=== PATIENT | female | born 1960 | race Caucasian/White ===

== ENCOUNTER 2017-07-31 10:24 | Emergency (ER) | payer MEDICARE ==
[2013-02-07 22:46] VITALS: BMI 36.3
[~2017-07-31 10:24] MED LIST: ADVAIR 250/501 DISK INH; CLONAZEPAM2 MG/TAB PO; DEXTROSE 50%/WA50 ML IV; DILAUDID INJ2 MG/ML IV; GLUCAGON1 MG/KIT IM; GLUCAGON1 MG/KIT SQ; GLUCOPHAGE500 MG PO; HUMALOG 30100 UNITS/ SC; HUMULIN R100 U/ML; IPRAT-ALBUT 0.5-3 ML NEB; LANTUS INSULIN10 ML; LISINOPRIL5 MG PO; MACROBID100 MG PO; METOPROLOL TART50 MG PO; ONDANSETRON4 MG/2 M3 IV; OXYCONTIN10 MG PO; OXYCONTIN15 MG PO; PHENERGAN25 M1 PO; PHENERGAN25 MG/ML IM; PROTONIX 40 MG40 MG IV; PROTONIX40 MG PO; SYNTHROID100 MCG PO; TYLENOL 8 HOUR650 MG PO; TYLENOL650 MG RC; VICOPROFEN 7.5/1 TAB PO; XANAX2 MG PO; ZETIA10 MG PO
[2017-07-31 10:53] LABS: BASOPHILS 0.6 % (0-2); EOSINOPHILS 1.4 % (0-7); HEMATOCRIT 41.5 % (36.0-48.0); HEMOGLOBIN 14.4 g/dL (12-16); IMMATURE GRANULOCYTES 0.6 % (0-5); LYMPHOCYTES 34.7 % (15-50); MCH 30.8 pg (26.0-34.0); MCHC 34.7 g/dL (31.0-37.0); MCV 88.9 fL (80.0-100.0); MEAN PLATELET VOLUME 9.6 fL (7.4-10.4); NEUTROPHILS 57.7 % (40-80); PLATELET COUNT 277 10x3/uL (130-400); RBC 4.67 10x6/uL (4.00-5.40); RDW 13.2 % (11.5-14.5)
[2017-07-31 11:09] LABS: ALBUMIN 3.6 g/dL (3.4-5.0); ALKALINE PHOSPHATASE 78 U/L (46-116); ALT (SGPT) 22 U/L (10-68); CALC OSMOLALITY 279 mosm/kg (275-300); CALCIUM 9.2 mg/dL (8.5-10.1); CARBON DIOXIDE 25.9 mmol/L (21.0-32.0); CHLORIDE - SERUM 106 mmol/L (98-107); CREATININE - SERUM 0.8 mg/dL (0.6-1.3); GLUCOSE 131 mg/dL (74-106); POTASSIUM - SERUM 4.4 mmol/L (3.5-5.1); PROTEIN - SERUM 7.4 g/dL (6.4-8.2); SODIUM 139 mmol/L (136-145); UREA NITROGEN 13 mg/dL (7-18); eGFR NON AFRICAN AMERICAN 78 mL/min (90-120)
[2017-07-31 11:30] LABS: CHOL - HDL RATIO 2.8 ratio (2.3-4.1); CHOLESTEROL, TOTAL 161 mg/dL (0-200); CKMB 0.7 U/L (0.0-3.6); CREATINE KINASE 38 UL (21-215); HDL CHOLESTEROL 57 mg/dL (32-96); LDL CHOLESTEROL 75 mg/dL (0-100); LDL-HDL RATIO 1.3 ratio (1.5-3.5); TRIGLYCERIDE 146 mg/dL (30-200); TROPONIN-I < 0.017 ng/mL (0.000-0.060)
[2017-07-31 11:58] LABS: C-REACTIVE PROTEIN 1.4 mg/dL (0.0-0.9); MAGNESIUM - SERUM 2.1 mg/dL (1.8-2.4); THYROID STIMULATING HORMONE 1.15 uIU/mL (0.36-3.74)
[2017-08-25] MEDS ORDERED: NOVOLOG100 U/M1 SC (08:20)
[2017-08-25] MEDS ORDERED: PRALUENT P75 MG/1 ML SC (08:22)
[2017-08-25] MEDS ORDERED: HYDROCODONE-IB1 EAC3 PO (08:22)
[2017-08-25] MEDS ORDERED: SOMA350 MG (08:23)
[2017-08-25] MEDS ORDERED: BENADRYL25 MG PO (08:24)
[2017-08-25] MEDS ORDERED: NITROSTAT0.4 MG SL (08:26)
== END 2017-07-31 14:27 | disposition home or self-care (01) ==
LOC: D.ER 10:24
PROVIDERS: Emergency Medicine
DX: R07.9 Chest pain, unspecified (principal); E11.9 Type 2 diabetes mellitus without complications; Z79.4 Long term (current) use of insulin; E07.9 Disorder of thyroid, unspecified; F17.200 Nicotine dependence, unspecified, uncomplicated

== ENCOUNTER 2017-08-18 08:33 | Outpatient (CLI) | payer MEDICARE ==
[~2017-08-18] VITALS: Ht 165.1 cm; Wt 100.0 kg
--- NOTE | ~2017-08-18 | OP ---
PATIENT NAME: MARQUES GARCIA MEDICAL RECORD: [id number] :62 LOCATION:D.M2 D.2125 ADMISSION DATE: SURGEON: NICK LAZARO MD DATE OF OPERATION: 08/18/2017 PROCEDURES: 1. PTCA stent RCA. 2. Left heart catheterization. 3. Selective coronary angiography. 4. Left ventriculogram. INDICATION: Angina and coronary artery disease. PROCEDURE IN DETAIL: After informed consent was obtained and after a detailed description of the risks, benefits as well as alternative therapies, the patient elected to proceed with angiogram and angioplasty. The right radial area was prepped and draped in normal sterile fashion. Right radial artery was cannulated via modified Seldinger technique with placement of 6-Kinyarwanda sheath. All catheters exchanged through this sheath. FINDINGS: The left ventriculogram was performed in standard 30-degree MARTINEZ view reveals good wall motion throughout all segments. Overall ejection fraction 55%. SELECTIVE CORONARY ANGIOGRAPHY: 1. Left main is with no significant angiographic disease. 2. Left anterior descending has 80% to 85% stenosis times 2. 3. Left circumflex has long area of 80+ percent stenosis. 4. The right coronary artery has a long area of 80% stenosis followed by 95% stenosis. PTCA STENT OF THE RIGHT CORONARY ARTERY: Stents used were 3.5 x 22 and 3.5 x 26, both Nathan stents. Result was 0% residual stenosis. OVERALL IMPRESSION: Successful PTCA stent of the right coronary artery going from 95% initial stenosis to 0% residual. PLAN: PTCA stent of the LAD and circumflex in the near future. TRANSINT:[id number] Voice Confirmation ID: [id number] DOCUMENT ID: [id number] NICK LAZARO MD at 1218 CC: [id number] DICTATION DATE: 08/18/17 1103 SWEET GOODS MACHINE OPERATOR: 08/18/17 1244 [address] [place] [address]
--- NOTE | ~2017-08-18 | DS ---
PATIENT:MARQUES MARTINEZ :62 MEDICAL RECORD: [id number] DISCHARGE SUMMARY ADMISSION DATE: 08/18/17 DISCHARGE DATE: 08/19/17 DISCHARGE DIAGNOSES: 1. Unstable angina. 2. Coronary artery disease. 3. PTCA stent right coronary artery and left anterior descending this admission. HOSPITAL COURSE: Mrs. Martinez presents with anginal symptomatology, found to have 3-vessel coronary artery disease, underwent successful PTCA stent of the RCA and LAD, had a postop course and was discharged home with the addition of aspirin and Plavix to her medical regimen. Follow up with [facility] in 1 month. TRANSINT:[id number] Voice Confirmation ID: [id number] DOCUMENT ID: [id number] NICK LAZARO MD at 0751 CC: [id number] DICTATION DATE: 08/19/17 1253 MANAGER CITY: 08/19/17 1429 DEP CLI 08/19/17 [address] [place] [address]
--- NOTE | ~2017-08-18 | HEMODYNAMI ---
PATIENT:MARQUES GARCIA MEDICAL RECORD: [id number] : 62 LOCATION[facility] D.2125 [id number] ADMISSION DATE: 08/18/17 Generatedon:08/19/201712:53 Patient name: MARQUES GARCIA Patient #: [id number] SSN: : Date of study: 08/19/2017 Page: Of Hemodynamic Procedure Report Patient Data Patient Demographics Procedure consent was obtained First Name: MARQUES Gender: Female Last Name: RADHA : 1960 [facility] Initial: ROSE Age: 57 year(s) Patient #: [id number] Race: Unknown Additional ID: [id number] Contact details [address]: [address] [place] [address] State: [place] City: [place] Zip code: [address] Past Medical History Allergies Allergen Reaction Date Comments Reported Other allergy 08/18/2017 CYMBALTA, DOLOBID, LIPITOR, NEGGRAM, SULFA, TYLENOL, VISTARIL Admission Admission Data Admission Date: 08/18/2017 Admission Time: 8:33 Room #: D.2125 Procedure Procedure Types Cath Procedure PCI Procedure Coronary Stent Coronary Stent Initial Procedure Description Procedure Date Procedure Date: 08/19/2017 Procedure Start Time: 12:42 Procedure End Time: 12:52 Procedure Staff Name Function Rubens Castillo MD Performing Physician Jose David Rascon RT Locum Tenens Kori Wong RT Monitor Kristin Jacinto RT Scrub Nura Montes RN Nurse Procedure Data Cath Procedure Fluoroscopy Diagnostic fluoroscopy Total fluoroscopy Time: 2.2 time: 2.2 min min Diagnostic fluoroscopy Total fluoroscopy dose: 242 dose: 242 mGy mGy Contrast Material Contrast Material Type Amount (ml) Isovue 370 47 Entry Location Entry Primary Successful Side Size Upsize Upsize Entry Closure Succes sful Closure Location (Fr) 1 (Fr) 2 (Fr) Remarks Device Remarks Femoral Right 6 Fr Exoseal artery Short Estimated blood loss: 5 ml Procedure Complications No complications Procedure Medications Medication Administration Route Dosage 0.9% NaCl I.V. 100 ml/hr Oxygen etCO2 Nasal cannula 2 l/min Heparin Flush Bag added to field 2 bags (1000units/500ml NS) Lidocaine 2% added to field 20 Versed I.V. 2 mg Fentanyl I.V. 100 mcg Versed I.V. 2 mg Fentanyl I.V. 100 mcg Heparin Bolus I.V. 4000 units Versed I.V. 2 mg Hemodynamics Rest Heart Rate: 69 (bpm) Snapshots Pre Cath Intra NCS Post Cath Vital Signs Time Heart Resp SPO2 etCO2 NIBP (mmHg) Rhythm Pain Sedation Rate (ipm) (%) (mmHg) Status Level (bpm) 12:14:33 72 15 95 0 132/82(104) NSR 0 (11) 10(A) , No pain 12:18:49 64 12 97 15.7 124/74(104) NSR 0 (11) 10(A) , No pain 12:23:01 67 19 97 28.5 122/80(95) NSR 0 (11) 10(A) , No pain 12:27:13 70 30 94 12.7 121/77(107) NSR 0 (11) 10(A) , No pain 12:31:19 64 22 95 2.2 123/73(115) NSR 0 (11) 10(A) , No pain 12:35:31 67 19 97 26.2 129/78(114) NSR 0 (11) 10(A) , No pain 12:39:45 67 16 96 3.7 127/77(110) NSR 0 (11) 10(A) , No pain 12:44:03 64 53 94 38.3 111/64(91) NSR 0 (11) 10(A) , No pain 12:48:13 72 31 96 27 106/59(84) NSR 0 (11) 10(A) , No pain 12:52:25 66 10 93 33.8 113/58(87) NSR 0 (11) 10(A) , No pain Medications Time Medication Route Dose Verified Delivered Reason Notes Effectiveness by by 12:18:44 0.9% NaCl I.V. 100 Nura Nura Per physician ml/hr Jyoti Montes RN RN 12:18:54 Oxygen etCO2 2 Nura Nura Per physician Nasal l/min Jyoti cardenas RN RN 12:19:05 Heparin Flush added 2 Nura Nura used for Bag to bags Loralessandro Montes procedure (1000units/500ml field RN RN NS) 12:19:16 Lidocaine 2% added 20ml Nura Nura for local to vial Loralessandro Montes anesthetic field RN RN 12:37:52 Versed I.V. 2 mg Nura Nura for sedation Loralessandro Montes RN RN 12:38:00 Fentanyl I.V. 100 Nura Nura for sedation mcg Jyoti Montes RN RN 12:40:38 Versed I.V. 2 mg Nura Nura for sedation Lorigan Loralessandro RN RN 12:40:47 Fentanyl I.V. 100 Nura Nura for sedation mcg Jyoti Montes RN RN 12:44:15 Heparin Bolus I.V. 4000 Nura Nura for units Lorigan Jyoti anticoagulation RN RN 12:45:51 Versed I.V. 2 mg Nura Nura for sedation Jyoti Montes RN de icer finisher Log Time Note 12:00:02 Jose David Rascon RT(R) (CV) sent for patient. Start room use. 12:09:07 Time tracking: Regular hours (M-F 7:00 - 5:00) 12:09:11 Plan of Care:Hemodynamics will remain stable., Cardiac rhythm will remain stable., Comfort level will be maintained., Respiratory function will remain adequate., Patient/ family verbilizes understanding of procedure., Procedure tolerated without complication., Recovers from procedure without complications.. 12:09:12 Signed procedure consent form obtained from patient. 12:09:23 Patient received from Med II to CCL 2 Alert and oriented. Tansferred to table in Supine position. 12:09:50 H&P Date Dictated: 08/18/2017 Within 30 days and on chart., H&P Addendum completed by physician on day of procedure. (MUST COMPLETE FOR ALL OUTPATIENTS). 12:13:26 Warm blankets applied, and nieves hugger turned on for patient comfort. 12:13:27 Correct patient and procedure confirmed by team. 12:13:27 ECG and BP/O2 sat monitors applied to patient. 12:13:29 Vital chart was started 12:13:29 Full Disclosure recording started 12:13:33 Rhythm: sinus rhythm 12::34 Pre-procedure instructions explained to patient. 12::34 Pre-op teaching completed and patient verbalized understanding. 12:13:37 Family in patients room. 12:13:39 Patient NPO since Midnight. 12:13:46 Is the patient allergic to Iodine/contrast media? Yes. 12:13:47 Was the patient premedicated? No 12:13:49 Is patient on blood thinner?Yes 12:13:50 ACC The patient was administered the following blood thiners within the last 24 hours: ACCAspirin, ACCPlavix 12:13:52 Patient diabetic? Yes. 12:15:17 If diabetic: On Metformin? Yes 12:15:20 If on Metformin: Last Dose? 08/16/2017 12:15:32 Previous problem with sedation/anesthesia? No ? 12:15:33 Snore? Yes 12:15:34 Sleep apnea? No 12:15:36 Deviated septum? No 12:15:37 Opens mouth fully? Yes 12:15:37 Sticks out tongue? Yes 12:15:39 Airway obstruction? No ? 12:15:43 Dentures? Yes IN 12:15:46 Pre procedure: right dorsailis pedis pulse 2+ Normal; easily identifiable; not easily obliterated 12:15:49 Patient pain scale 0/10 ?. 12:15:54 IV patent on arrival in left forearm with 0.9% NaCl at [facility]. 12:15:57 Lab results completed and on chart. 12:16:02 Right groin area was prepped with chlora-prep and draped in sterile fashion 12:16:03 Alarms reviewed by R. N. 12:16:03 Sharps counted by scrub and verified by R.N. 12:18:38 Use device set CATH PACK 12:18:39 ACIST Syringe (13461) opened to sterile field. 12:18:39 ACIST Hand Control (27884) opened to sterile field. 12:18:40 ACIST Manifold (15064) opened to sterile field. 12:18:40 Medline Cath Pack ([id number]) opened to sterile field. 12:18:41 Bag Decanter (2002) opened to sterile field. 12:18:41 DIAGNOSTIC WIRE .035 260cm J wire (141151) opened to sterile field. 12:18:44 0.9% NaCl 100 ml/hr I.V. was administered by Nura Montes RN; Per physician; 12:18:53 Use device set TAU PCI 12:18:54 Oxygen 2 l/min etCO2 Nasal cannula was administered by Nura Montes RN; Per physician; 12:18:56 PERCUTANEOUS ENTRY 19GA needle opened to sterile field. 12:18:57 Tegaderm 4 x 4 (1626W) opened to sterile field. 12:18:57 INFLATOR Merit BasixCompak (MX0431) opened to sterile field. 12:19:01 CHOICE PT Extra Support 182cm wire ([id number]) opened to sterile field. 12:19:04 SHEATH Prelude 6Fr 0.035 (JGV-8C-25-035) opened to sterile field. 12:19:05 Heparin Flush Bag (1000units/500ml NS) 2 bags added to field was administered by Nura Montes RN; used for procedure; 12:19:16 Lidocaine 2% 20ml vial added to field was administered by Nura Montes RN; for local anesthetic; 12:21:48 Baseline sample Acquired. 12:26:40 Zero performed for pressure channel P1 12:26:44 Zero performed for pressure channel P1 12:37:30 Final Timeout: patient, procedure, and site verified with staff and physician. All members of the team are in agreement. 12:37:31 Right groin site verified by team. 12:37:33 Physical assessment completed. ASA score P 2 - A patient with mild systemic disease as per Rubens Castillo MD. 12:37:36 Sedation plan: IV Moderate Sedation Medication:Versed, Fentanyl 12:37:52 Versed 2 mg I.V. was administered by Nura Montes RN; for sedation; 12:38:00 Fentanyl 100 mcg I.V. was administered by Nura Montes RN; for sedation; 12:40:38 Versed 2 mg I.V. was administered by Nura Montes RN; for sedation; 12:40:47 Fentanyl 100 mcg I.V. was administered by Nura Montes RN; for sedation; 12:42:16 Procedure started. 12:42:20 Local anesthetic to right femoral artery with Lidocaine 2% by Rubens Castillo MD.INITIAL ACCESS ONLY 12:42:31 A 6 Fr Short sheath was inserted into the Right Femoral artery 12:43:17 GUIDE 6FR XBLAD 3.5 catheter ([id number]) opened to sterile field. 12:43:25 6 Fr XBLAD 3.5 guide catheter was inserted over the wire 12:44:15 Heparin Bolus 4000 units I.V. was administered by Nura Montes RN; for anticoagulation; 12:44:28 Choice PT ES wire advanced. 12:45:51 Versed 2 mg I.V. was administered by Nura Montes RN; for sedation; 12:46:31 Place stent Inflation Number: 1 A ALPINE Rx 2.25 x 12 stent ([id number]) was prepped and advanced across the Mid LAD. The stent was deployed at 17 BILLY for 0:08 (min:sec). 12:46:45 Stent catheter was removed intact over wire. 12:48:01 Place stent Inflation Number: 1 A ALPINE Rx 3.0 x 18 stent ([id number]) was prepped and advanced across the Prox LAD. The stent was deployed at 21 BILLY for 0:08 (min:sec). 12:48:18 Stent catheter was removed intact over wire. 12:48:19 Wire removed. 12:48:19 Guide catheter removed. 12:48:28 Sheath removed intact; hemostasis achieved with Exoseal to the Right Femoral artery. 12:48:30 Procedure ended.(Physican Out) 12:49:46 Fluoroscopy time 02.20 minutes. 12:49:50 Flurop Dose total: 242 12:49:50 Fluoroscopy dose: 242 mGy 12:49:56 Contrast amount:Isovue 370 47ml. 12:49:57 Sharps counted by scrub and verified by R.N. 12:49:59 Insertion/operative site no bleeding no hematoma. 12:50:02 Post-op/insertion site Right Femoral artery dressed using a 4 x 4 and Tegaderm. 12:50:05 Post right femoral artery:stable, clean and dry 12:50:07 Post Procedure Pulses reassessed and unchanged 12:50:09 Post-procedure physical assessment completed. ASA score P 2 - A patient with mild systemic disease as per Rubens Castillo MD. 12:50:11 Post procedure rhythm: unchanged. 12:50:14 Estimated blood loss: 5 ml 12:50:17 Post procedure instruction explained to patient.Patient verbalizes understanding. 12:50:18 Patient needs reinforcement of post procedure teaching. 12:50:40 Procedure Complication : No complications 12:50:42 See physician's report for complete and final results. 12:50:51 EXOSEAL 6Fr (EX600) opened to sterile field. 12:52:26 Procedure and supply charges have been captured, reviewed, submitted and are correct. 12:52:36 Vital chart was stopped 12:52:38 Report given to PCU. 12:52:42 Patient transfered to PCU with Bed. 12:52:43 Procedure ended. 12:52:43 Full Disclosure recording stopped 12:52:47 End room use (Document Last) Intervention Summary Intervention Notes Time ActionType Lesion and Equipment Action# Pressure Duration Attributes Used 12:46:31 Place stent Mid LAD ALPINE Rx 1 17 00:08 2.25 x 12 stent ([id number]) 12:48:01 Place stent Prox LAD ALPINE Rx 1 21 00:09 3.0 x 18 stent ([id number]) Device Usage Item Name Manufacture Quantity Catalog Number Hospital Part Current Minimal Lot# / Charge Number Stock Stock Serial# Code ACIST Syringe Acist 1 85497 748904 425241 972958 20 (55241) [employer] ACIST Hand Acist 1 66241 980831 542789 089320 5 Control (27993) [employer] ACIST Manifold Acist 1 53900 751466 338787 773060 5 (47133) [employer] Medline Cath Cardinal 1 [id number] 612601 [address] [facility] ([id number]) Bag Decanter Microtek 1 2001S 645523 77250 713661 5 (2001S) Medical Inc. DIAGNOSTIC WIRE [facility] [place] 1 168569 256559 550316 523571 30 .035 260cm J wire (436371) PERCUTANEOUS Cook Medical 1 [id number] 036707 234327 5 ENTRY 19GA needle Tegaderm 4 x 4 3M 1 1626W 357492 270657 572659 5 (1626W) INFLATOR Merit Merit 1 [id number] 646485 098522 964722 15 [facility] ([id number]) CHOICE PT Extra Matinicus 1 [id number] 692163 590332 620147 5 Support 182cm Scientific wire ([id number]) SHEATH Prelude Merit 1 [id number] 663623 8047767 071880 5 6Fr 0.035 Medical (SNG-4V-04-035) GUIDE 6FR XBLAD Cardinal 1 [id number] 056779 030429 183405 10 3.5 catheter Health (10567166) [facility] 2.25 Hernadez 1 6023264-07 796516 182016 529987 5 3280802 x 12 stent Vascular ([id number]) ALPINE Rx 3.0 x Hernadez 1 3291440-32 097119 842255 168247 5 [id number] 18 stent Vascular ([id number]) EXOSEAL 6Fr Cardinal 1 EX600 069249 085701 641011 10 (EX600) Health Signature Audit [place] Stage Time Signature Unsigned Intra-Procedure 08/19/2017 Kori 12:52:57 PM Counts RT(R) Signatures Monitor : Kori Signature : Counts RT Date : Time : [id number] [place] [address]
--- NOTE | ~2017-08-18 | HEMODYNAMI ---
PATIENT:MARQUES GARCIA MEDICAL RECORD: [id number] : 62 LOCATION:[facility] ADMISSION DATE: 08/18/17 Generatedon:08/18/201711:05 Patient name: MARQUES GARCIA Patient #: [id number] SSN: : Date of study: 08/18/2017 Page: Of Hemodynamic Procedure Report Patient Data Patient Demographics Procedure consent was obtained First Name: MARQUES Gender: Female Last Name: RADHA : 1960 [facility] Initial: ROSE Age: 57 year(s) Patient #: [id number] Race: Unknown Additional ID: [id number] Contact details [address]: [address] [place] [address] State: [place] City: [place] Zip code: [address] Past Medical History Allergies Allergen Reaction Date Comments Reported Other allergy 08/18/2017 CYMBALTA, DOLOBID, LIPITOR, NEGGRAM, SULFA, TYLENOL, VISTARIL Admission Admission Data Admission Date: 08/18/2017 Admission Time: 8:33 Procedure Procedure Types Cath Procedure Diagnostic Procedure LHC [facility] w/Coronaries Sedation Charges Moderate Sedation up to 15 minutes PCI Procedure Coronary Stent Coronary Stent Initial Procedure Description Procedure Date Procedure Date: 08/18/2017 Procedure Start Time: 10:39 Procedure End Time: 11:03 Procedure Staff Name Function Rubens Castillo MD Performing Physician Sj Griffith RT Monitor Kristin Jacinto RT Scrub Nura Montes RN Nurse Procedure Data Cath Procedure Fluoroscopy Diagnostic fluoroscopy Total fluoroscopy Time: 7.5 time: 7.5 min min Diagnostic fluoroscopy Total fluoroscopy dose: dose: 1130 mGy 1130 mGy Contrast Material Contrast Material Type Amount (ml) Isovue 370 126 Entry Location Entry Primary Successful Side Size Upsize Upsize Entry Closure Aldridge ccessful Closure Location (Fr) 1 (Fr) 2 (Fr) Remarks Device Remarks Radial Right 6 Fr Mechanical artery Short Compression Estimated blood loss: 10 ml Diagnostic catheters Device Type Used For End Catheter Placement DIAGNOSTIC Chariton 110cm 5 Procedure Fr catheter ([id number]) DIAGNOSTIC Aqua Clements Procedure 125cm 5Fr catheter ([id number]) Procedure Complications No complications Procedure Medications Medication Administration Route Dosage 0.9% NaCl I.V. 100 ml/hr Heparin Flush Bag added to field 2 bags (1000units/500ml NS) Oxygen etCO2 Nasal cannula 2 l/min Lidocaine 2% added to field 20 Radial Cocktail added to field 1 syringe (Verapomil 2mg/Nitro 400mcg/Heparin 1500units) Versed I.V. 2 mg Fentanyl I.V. 100 mcg Fentanyl I.V. 100 mcg Versed I.V. 2 mg Radial Cocktail I.A. 1 syringe (Verapomil 2mg/Nitro 400mcg/Heparin 1500units) Versed I.V. 2 mg Fentanyl I.V. 100 mcg Heparin Bolus I.V. 4000 units Hemodynamics Rest Heart Rate: 57 (bpm) Snapshots Pre Cath Intra NCS Post Cath Vital Signs Time Heart Resp SPO2 etCO2 NIBP (mmHg) Rhythm Pain Sedation Rate (ipm) (%) (mmHg) Status Level (bpm) 10:05:09 62 13 94 0 122/75(98) NSR 0 (11) 10(A) , No pain 10:09:52 54 15 94 21 127/75(96) NSR 0 (11) 10(A) , No pain 10:14:35 56 14 96 36.9 117/77(94) NSR 0 (11) 10(A) , No pain 10:19:17 50 14 90 36.1 104/64(79) NSR 0 (11) 10(A) , No pain 10:23:56 65 22 93 30.8 112/67(91) NSR 0 (11) 10(A) , No pain 10:28:36 67 17 96 36.1 127/72(102) NSR 0 (11) 10(A) , No pain 10:33:17 56 14 92 36.1 119/74(96) NSR 0 (11) 10(A) , No pain 10:37:58 64 18 95 38.4 129/76(94) NSR 0 (11) 10(A) , No pain 10:43:15 58 18 92 30.1 93/62(86) NSR 0 (11) 10(A) , No pain 10:47:50 68 18 92 33.9 107/68(94) NSR 0 (11) 10(A) , No pain 10:52:28 70 17 92 10.5 116/65(99) NSR 0 (11) 10(A) , No pain 10:57:07 68 11 92 8.2 120/66(90) NSR 0 (11) 10(A) , No pain 11:01:48 71 11 91 32.4 133/71(99) NSR 0 (11) 10(A) , No pain Medications Time Medication Route Dose Verified Delivered Reason Not es Effectiveness by by 10:04:26 0.9% NaCl I.V. 100 Nura Nura Per physician ml/hr Jyoti Montes RN RN 10:04:46 Heparin Flush added 2 bags Nura Nura used for Bag to Lorigan Jyoti procedure (1000units/500ml field PINEDA RN NS) 10:05:05 Oxygen etCO2 2 l/min Nura Nura Per physician Nasal Karineigan Jyoti cannula RN RN 10:05:23 Lidocaine 2% added 20ml Nura Unra for local to vial Lorigan Lorigan anesthetic field RN RN 10:06:01 Radial Cocktail added 1 Nura Nura used for (Verapomil to syringe Lorigan Loralessandro procedure 2mg/Nitro RN RN 400mcg/Heparin 1500units) 10:37:19 Versed I.V. 2 mg Nura Nura for sedation Jyoti Montes RN RN 10:37:27 Fentanyl I.V. 100 mcg Nura Nura for sedation Jyoti Montes RN RN 10:40:14 Fentanyl I.V. 100 mcg Nura Nura for sedation Jyoti Montes RN RN 10:40:22 Versed I.V. 2 mg Nura Nura for sedation Jyoti Montes RN RN 10:41:24 Radial Cocktail I.A. 1 Nura Rubens for (Verapomil syringe Jyoti pepe 2mg/Nitro RN 400mcg/Heparin 1500units) 10:44:56 Versed I.V. 2 mg Nura Nura for sedation Jyoti Montes RN RN 10:45:03 Fentanyl I.V. 100 mcg Nura Nura for sedation Jyoti Montes RN RN 10:50:05 Heparin Bolus I.V. 4000 Nura Nura for units Lorigan Lorigan anticoagulation RN rate inserter Log Time Note 9:49:10 Signed procedure consent form obtained from patient. 9:49:14 Sj Griffith RT(R) sent for patient. Start room use. 9:49:14 Time tracking: Regular hours (M-F 7:00 - 5:00) 9:49:18 Plan of Care:Hemodynamics will remain stable., Cardiac rhythm will remain stable., Comfort level will be maintained., Respiratory function will remain adequate., Patient/ family verbilizes understanding of procedure., Procedure tolerated without complication., Recovers from procedure without complications.. 9:51:13 Patient allergic to Other allergyCYMBALTA, DOLOBID, LIPITOR, NEGGRAM, SULFA, TYLENOL, VISTARIL 10:04:13 Vital chart was started 10:04:26 0.9% NaCl 100 ml/hr I.V. was administered by Nura Montes RN; Per physician; 10:04:46 Heparin Flush Bag (1000units/500ml NS) 2 bags added to field was administered by Nura Montes RN; used for procedure; 10:05:05 Oxygen 2 l/min etCO2 Nasal cannula was administered by Nura Montes RN; Per physician; 10:05:23 Lidocaine 2% 20ml vial added to field was administered by Nura Montes RN; for local anesthetic; 10:05:24 Patient received from Pre/Post Procedure Room to CCL 1 Alert and oriented. Tansferred to table in Supine position. 10:05:25 Warm blankets applied, and nieves hugger turned on for patient comfort. 10:05:25 Correct patient and procedure confirmed by team. 10:05:26 ECG and BP/O2 sat monitors applied to patient. 10:05:28 Baseline sample Acquired. 10:05:32 Rhythm: sinus rhythm 10:05:33 Full Disclosure recording started 10:05:54 H&P Date Dictated: 07/28/2017 Within 30 days and on chart., H&P Addendum completed by physician on day of procedure. (MUST COMPLETE FOR ALL OUTPATIENTS). 10:05:56 Pre-procedure instructions explained to patient. 10:05:57 Family in waiting room. 10:06:00 Patient NPO since Midnight. 10:06:01 Radial Cocktail (Verapomil 2mg/Nitro 400mcg/Heparin 1500units) 1 syringe added to field was administered by Nura Montes RN; used for procedure; 10:06:01 Is the patient allergic to Iodine/contrast media? Yes. 10:06:02 Was the patient premedicated? Yes 10:06:03 Is patient on blood thinner?Yes 10:06:05 ACC The patient was administered the following blood thiners within the last 24 hours: ACCPlavix 10:06:06 Patient diabetic? Yes. 10:06:07 If diabetic: On Metformin? Yes 10:06:10 If on Metformin: Last Dose? 08/16/2017 10:06:14 Previous problem with sedation/anesthesia? No ? 10:06:16 Snore? Yes 10:06:17 Sleep apnea? No 10:06:18 Deviated septum? No 10:06:18 Opens mouth fully? Yes 10:06:19 Sticks out tongue? Yes 10:06:20 Airway obstruction? No ? 10:06:24 Dentures? Yes IN TIGHT 10:06:28 Modified Kenneth's test Ulnar < 7 seconds 10:06:34 Patient pain scale 0/10 ?. 10:06:49 IV patent on arrival in left forearm with 0.9% NaCl at O. 10:07:45 Lab results completed and on chart. 10:07:47 Right Radial & Right Groin area was prepped with chlora-prep and draped in sterile fashion 10:07:48 Alarms reviewed by R. N. 10:07:49 Sharps counted by scrub and verified by R.N. 10:08:09 Use device set Radial Dx or PCI 10:08:09 ACIST Syringe (12331) opened to sterile field. 10:08:10 Medline Cath Pack ([id number]) opened to sterile field. 10:08:11 Bag Decanter () opened to sterile field. 10:08:11 ACIST Hand Control (60176) opened to sterile field. 10:08:12 ACIST Manifold (94035) opened to sterile field. 10:08:14 Tegaderm 4 x 4 (1626W) opened to sterile field. 10:08:14 MBrace Wrist Support ([id number]) opened to sterile field. 10:08:16 SHEATH 6Fr Prelude Radial ([id number]) opened to sterile field. 10:08:17 DIAGNOSTIC WIRE .035 260cm J wire (182821) opened to sterile field. 10:36:16 Physician arrived 10:36:17 --------ALL STOP TIME OUT------ 10:36:18 Final Timeout: patient, procedure, and site verified with staff and physician. All members of the team are in agreement. 10:36:21 Right Radial & Right Groin site verified by team. 10:36:40 Physical assessment completed. ASA score P 2 - A patient with mild systemic disease as per Rubens Castillo MD. 10:36:44 Sedation plan: IV Moderate Sedation Medication:Versed, Fentanyl 10:37:19 Versed 2 mg I.V. was administered by Nura Montes RN; for sedation; 10:37:27 Fentanyl 100 mcg I.V. was administered by Nura Montes RN; for sedation; 10:39:46 Procedure started. 10:39:49 Local anesthetic to right radial artery with Lidocaine 2% by Rubens Castillo MD.INITIAL ACCESS ONLY 10:39:59 A 6 Fr Short sheath was inserted into the Right Radial artery 10:40:14 Fentanyl 100 mcg I.V. was administered by Nura Montes RN; for sedation; 10:40:22 Versed 2 mg I.V. was administered by Nura Montes RN; for sedation; 10:41:10 A DIAGNOSTIC Chariton 110cm 5 Fr catheter ([id number]) was advanced over the wire and used for Procedure. 10:41:24 Radial Cocktail (Verapomil 2mg/Nitro 400mcg/Heparin 1500units) 1 syringe I.A. was administered by Rubens Castillo MD; for vasodilation; 10:43:06 LV gram done using MARTINEZ 10:43:09 Injector settings: Ml/sec: 7, Volume: 15, 10:43:25 EF : 55 % 10:43:37 RCA angiography performed. 10:43:55 INFLATOR Merit BasixCompak (BI1628) opened to sterile field. 10:43:55 CHOICE PT Extra Support 182cm wire ([id number]) opened to sterile field. 10:44:19 LCA angiography performed. 10:44:54 Catheter exchanged over wire. 10:44:56 Versed 2 mg I.V. was administered by Nura Montes RN; for sedation; 10:45:00 A DIAGNOSTIC Aqua Clements 125cm 5Fr catheter ([id number]) was advanced over the wire and used for Procedure. 10:45:03 Fentanyl 100 mcg I.V. was administered by Nura Montes RN; for sedation; 10:47:24 Right leg runoff performed. 10:47:30 Left leg runoff performed. 10:47:39 Catheter removed. 10:48:19 GUIDE 6FR AR 1.0 SH catheter ([id number]) opened to sterile field. 10:48:32 6 Fr AR 1 SH guide catheter was inserted over the wire 10:48:43 CHOICE PT ES wire advanced. 10:50:05 Heparin Bolus 4000 units I.V. was administered by Nura Montes RN; for anticoagulation; 10:50:51 Wire advanced across lesion. 10:52:06 The BONNIE RX 3.5 x 22 stent ([id number]) was advanced then removed because of failure to cross lesion 10:53:18 Inflate balloon Inflation number: 1 A EUPHORA 3.0 x 15 Balloon ([id number]) was prepped and advanced across the Mid RCA, then inflated to 13 BILLY for 0:10 (min:sec). 10:53:25 Inflation number: 2 The EUPHORA 3.0 x 15 Balloon ([id number]) was reinflated across the Mid RCA, to 13 BILLY for 0:10 (min:sec). 10:53:40 Inflation number: 3 The EUPHORA 3.0 x 15 Balloon ([id number]) was reinflated across the Mid RCA, to 13 BILLY for 0:10 (min:sec). 10:54:19 Balloon removed over the wire. 10:54:40 Place stent Inflation Number: 4 A BONNIE RX 3.5 x 22 stent ([id number]) was prepped and advanced across the Mid RCA. The stent was deployed at 13 BILLY for 0:10 (min:sec). 10:55:17 Stent catheter was removed intact over wire. 10:57:10 Place stent Inflation Number: 1 A BONNIE RX 3.5 x 26 stent ([id number]) was prepped and advanced across the Prox RCA. The stent was deployed at 15 BILLY for 0:10 (min:sec). 10:57:15 Stent catheter was removed intact over wire. 10:57:16 Wire removed. 10:57:16 Guide catheter removed. 10:57:22 TR BAND Standard ([id number]) opened to sterile field. 10:59:32 Sheath removed intact; hemostasis achieved with Mechanical Compression to the Right Radial artery. 10:59:33 Procedure ended.(Physican Out) 10:59:55 Fluoroscopy time 07.50 minutes. 11:00:03 Flurop Dose total: 1130 11:00:03 Fluoroscopy dose: 1130 mGy 11:00:12 Contrast amount:Isovue 370 126ml. 11:00:14 Sharps counted by scrub and verified by R.N. 11:00:17 TR band inflated with 12cc of air. 11:00:18 Insertion/operative site no bleeding no hematoma. 11:00:23 Post-procedure physical assessment completed. ASA score P 2 - A patient with mild systemic disease as per Rubens Castillo MD. 11:00:24 Post procedure rhythm: unchanged. 11:00:26 Estimated blood loss: 10 ml 11:00:27 Post procedure instruction explained to patient.Patient verbalizes understanding. 11:00:28 Patient needs reinforcement of post procedure teaching. 11:00:49 Procedure type changed to Cath procedure, Diagnostic procedure, LHC, LHC w/Coronaries, Sedation Charges, Moderate Sedation up to 15 minutes, PCI procedure, Coronary Stent, Coronary Stent Initial 11:02:54 Procedure and supply charges have been captured, reviewed, submitted and are correct. 11:02:56 Procedure Complication : No complications 11:02:57 Vital chart was stopped 11:03:00 See physician's report for complete and final results. 11:03:01 Report given to Pre/Post Procedure Room. 11:03:04 Patient transfered to Pre/Post Procedure Room with Stretcher. 11:03:06 Procedure ended. 11:03:06 Full Disclosure recording stopped 11:03:09 End room use (Document Last) Intervention Summary Intervention Notes Time ActionType Lesion and Equipment Used Action# Pressure Duration Attributes 10:52:06 Discard BONNIE RX 3.5 x Stent 22 stent ([id number]) 10:53:18 Inflate Mid RCA EUPHORA 3.0 x 1 13 00:10 balloon 15 Balloon ([id number]) 10:53:25 Reinflate Mid RCA EUPHORA 3.0 x 2 13 00:10 balloon 15 Balloon ([id number]) 10:53:40 Reinflate Mid RCA EUPHORA 3.0 x 3 13 00:10 balloon 15 Balloon ([id number]) 10:54:40 Place stent Mid RCA BONNIE RX 3.5 x 4 13 00:10 22 stent ([id number]) 10:57:10 Place stent Prox RCA BONNIE RX 3.5 x 1 15 00:10 26 stent ([id number]) Device Usage Item Name Manufacture Quantity Catalog Number Hospital Part Current Minimal Lot# / Charge Number Stock Stock Serial# Code ACIST Syringe Acist 1 20419 223689 649707 638230 20 (64926) Medical Systems Inc Medline Cath Cardinal 1 [id number] 349132 86016 778104 5 Pack GAP Miners ([id number]) Bag Decanter Microtek 1 2001S 938864 78284 448074 5 (2001S) Medical Inc. ACIST Hand Acist 1 00043 620040 795154 574134 5 Control (54550) Medical Systems Inc ACIST Manifold Acist 1 84872 400667 786807 270192 5 (48640) Medical Systems Inc Tegaderm 4 x 4 3M 1 1626W 740091 770965 632447 5 (1626W) MBrace Wrist Advanced 1 140-0250-00 372365 81298 306413 5 Support Vascular ([id number]) Dynamics SHEATH 6Fr Merit 1 [id number] 161162 537868 521055 5 Prelude Radial Medical ([id number]) DIAGNOSTIC WIRE [place] 1 631029 278420 000714 115044 30 .035 260cm J wire (552341) DIAGNOSTIC Terumo 1 53-2244 165593 684536 023911 5 Chariton 110cm 5 Fr catheter (452176) INFLATOR Merit Merit 1 KI7812 296315 822418 763262 15 BasixSolar CensuscoAlorum Medical (MU2294) CHOICE PT Extra Jackson 1 [id number] 974583 435727 396274 5 Support 182cm Scientific wire ([id number]) DIAGNOSTIC Aqua Cardinal 1 [id number] 668140 327408 143649 5 [facility] 125 Health 5Fr catheter (HCZ6925) GUIDE 6FR AR Medtronic 1 [id number] 704832 54883 631974 1 1.0 SH catheter ([id number]) BONNIE RX 3.5 x Medtronic 1 [id number] 560288 0387279 373942 5 [id number] 22 stent ([id number]) EUPHORA 3.0 x Medtronic 1 [id number] 757295 255037 963640 5 [id number] 15 Balloon ([id number]) BONNIE RX 3.5 x Medtronic 1 [id number] 570273 2030956 094203 5 [id number] 26 stent ([id number]) TR BAND Terumo 1 [id number] 479778 928134 001283 40 Standard ([id number]) Signature Audit [place] Stage Time Signature Unsigned Intra-Procedure 08/18/2017 Sj Griffith 11:05:30 AM RT(R) Signatures Monitor : Sj Griffith RT Signature : Date : Time : [place] [address] [place] ELI, [place] [address]
--- NOTE | ~2017-08-18 | OP ---
PATIENT NAME: MARQUES GARCIA MEDICAL RECORD: [id number] :62 LOCATION:D.M2 D.2125 ADMISSION DATE: SURGEON: NICK LAZARO MD DATE OF OPERATION: 08/18/2017 PROCEDURES: 1. Aortofemoral runoff. 2. Abdominal aortography. INDICATION: Claudication and peripheral vascular disease. PROCEDURE IN DETAIL: After informed consent was obtained and after a detailed description of risks, benefits as well as alternative therapies, the patient elected to proceed with angiogram and aortofemoral runoff. The right radial area had a preexisting sheath. All catheters exchanged through this sheath. FINDINGS: Abdominal aortography was performed. The catheter was advanced for aortofemoral runoff. Abdominal aortography reveals no significant known aortic disease, no dissection or aneurysm formation. RIGHT LEG: A. Iliac: The common internal and external iliacs have moderate irregularities, but no flow-limiting stenosis. B. Femoral system: The common superficial and deep femoral have moderate irregularities, but no flow-limiting stenosis. C. Popliteal and infrapopliteal vessels have mild irregularities, but no flow-limiting stenosis, good 3-vessel runoff to the foot. LEFT LEG: A. Iliac: The common internal and external iliacs have moderate irregularities, but no flow-limiting stenosis. B. Femoral system: The common superficial and deep femoral have moderate irregularities, but no flow-limiting stenosis. C. Popliteal and infrapopliteal vessels have mild irregularities, but no flow-limiting stenosis, good 3-vessel runoff to the foot. OVERALL IMPRESSION: No significant peripheral vascular disease is present. By history, the patient states that she had multiple stents in her legs. This is not accurate. The patient has no significant peripheral vascular disease and no lower extremity stenting. TRANSINT:[id number] Voice Confirmation ID: [id number] DOCUMENT ID: [id number] NICK LAZARO MD at 1218 CC: [id number] DICTATION DATE: 08/18/17 1103 INORGANIC CHEMISTRY PROFESSOR: 08/18/17 1244 REG [facility] [address] [place] [id number]
--- NOTE | ~2017-08-18 | OP ---
PATIENT NAME: MARQUES GARCIA MEDICAL RECORD: [id number] :62 LOCATION:D.CAT ADMISSION DATE: SURGEON: NICK LAZARO MD DATE OF OPERATION: 08/19/2017 PROCEDURES: 1. PTCA stent LAD. 2. Selective coronary angiography. INDICATION: Angina and coronary artery disease. PROCEDURE IN DETAIL: After informed consent was obtained and after a detailed description of risks, benefits as well as alternative therapies, the patient elected to proceed with angiogram and angioplasty. The right femoral area was prepped and draped in normal sterile fashion. The right femoral artery was cannulated via modified Seldinger technique with placement of 6-Georgian sheath. All catheters exchanged through this sheath. FINDINGS: The left anterior descending has an 80% stenosis proximally, 90% stenosis in the mid vessel. This was addressed with a 2.25 x 12 and 3.0 x 18 both Xience drug-eluting stents. Result was 0% residual stenosis. OVERALL IMPRESSION: Successful PTCA stent of the left anterior descending going from 90% initial stenosis to 0% residual. TRANSINT:[id number] Voice Confirmation ID: [id number] DOCUMENT ID: [id number] NICK LAZARO MD at 0751 CC: [id number] DICTATION DATE: 08/19/17 1254 RESIDENTIAL MORTGAGE UNDERWRITER: 08/19/17 1348 DEP CLI 08/19/17 [place] [id number] [place] [address]
[2017-08-18] MEDS ORDERED: METFORMIN HCL500 M1 PO (09:14)
[2017-08-18] MEDS ORDERED: PLAVIX75 MG PO (09:14)
[2017-08-18] MEDS ORDERED: AMBIEN5 MG PO (09:15)
[2017-08-18] MEDS ORDERED: BASAGLAR K100 UNIT/1 SC (09:15)
[2017-08-18 09:23] VITALS: BP 117/68; BMI 36.6
[2017-08-18 09:27] LABS: BASOPHILS 0.3 % (0-2); EOSINOPHILS 1.2 % (0-7); HEMATOCRIT 40.7 % (36.0-48.0); HEMOGLOBIN 14.3 g/dL (12-16); IMMATURE GRANULOCYTES 0.4 % (0-5); LYMPHOCYTES 36.1 % (15-50); MCHC 35.1 g/dL (31.0-37.0); MCV 88.1 fL (80.0-100.0); MEAN PLATELET VOLUME 9.5 fL (7.4-10.4); MONOCYTES 5.9 % (2-11); NEUTROPHILS 56.1 % (40-80); PLATELET COUNT 261 10x3/uL (130-400); RBC 4.62 10x6/uL (4.00-5.40); RDW 13.2 % (11.5-14.5); WBC 7.4 10x3/uL (4.8-10.8)
[2017-08-18 09:47] LABS: CALC OSMOLALITY 278 mosm/kg (275-300); CHLORIDE - SERUM 104 mmol/L (98-107); CREATININE - SERUM 0.8 mg/dL (0.6-1.3); GLUCOSE 138 mg/dL (74-106); POTASSIUM - SERUM 4.1 mmol/L (3.5-5.1); SODIUM 139 mmol/L (136-145); UREA NITROGEN 11 mg/dL (7-18); eGFR NON AFRICAN AMERICAN 78 mL/min (90-120)
[2017-08-18 17:13] VITALS: BP 129/73; Ht 165.1 cm; Wt 100.0 kg
[2017-08-18 21:22] VITALS: BP 150/75
[2017-08-19 06:11] VITALS: BP 130/80
[2017-08-19 08:35] VITALS: BP 129/69
[2017-08-19 10:06] VITALS: BP 129/69
[2017-08-19 11:22] VITALS: BP 136/74
[2017-08-19] MEDS ORDERED: ASPIRIN81 MG PO (17:50)
[2017-08-25] MEDS ORDERED: NOVOLOG100 U/M1 SC (08:20)
[2017-08-25] MEDS ORDERED: PRALUENT P75 MG/1 ML SC (08:22)
[2017-08-25] MEDS ORDERED: HYDROCODONE-IB1 EAC3 PO (08:22)
[2017-08-25] MEDS ORDERED: SOMA350 MG (08:23)
[2017-08-25] MEDS ORDERED: BENADRYL25 MG PO (08:24)
[2017-08-25] MEDS ORDERED: NITROSTAT0.4 MG SL (08:26)
== END 2017-08-19 19:01 | disposition home or self-care (01) ==
LOC: D.CATH 08:33 → D.M2 16:48 → D.CATH 08-19 19:01
PROVIDERS: Internal Medicine Interventional Cardiology
DX: I25.110 Atherosclerotic heart disease of native coronary artery with unstable angina pectoris (principal); M79.606 Pain in leg, unspecified; Z01.812 Encounter for preprocedural laboratory examination
CPT/HCPCS: 93458; C9600 ×2

== ENCOUNTER → 2017-08-25 07:45 | Outpatient (CLI) | payer MEDICARE ==
[2017-08-18 17:13] VITALS: BMI 36.3
--- NOTE | ~2017-08-25 | HP ---
PATIENT: MARQUES MARTINEZ MEDICAL RECORD: [id number] ACCOUNT: [id number] LOCATION:[facility] : 62 ADMISSION DATE: 08/25/17 HISTORY AND PHYSICAL EXAMINATION ADMITTING DIAGNOSES: 1. Angina. 2. Coronary artery disease. 3. Recent PTCA stent RCA with concomitant disease of LAD and circumflex. 4. Hypertension. 5. Hyperlipidemia. HISTORY OF PRESENT ILLNESS: Mrs. Martinez presents with unstable anginal symptomatology, found to have severe 3-vessel coronary artery disease, underwent successful PTCA stent of the RCA. She is now brought back for PTCA stent of the LAD and circumflex. PHYSICAL EXAMINATION: GENERAL APPEARANCE: Well-nourished, well-developed, appears stated age. Level of distress, comfortable. PSYCHIATRIC: Mental status, alert, normal affect. Orientation, oriented to time, place and person. EYES: Lids and conjunctiva, noninjected. No discharge, no pallor. ENT: Lips, teeth, gums, normal dentition. Oropharynx, no cyanosis, no pallor. NECK: Carotid arteries, bilateral normal upstroke, no bruits, no thrills. JUGULAR VEINS: No jugular venous pressure or distention. CERVICAL LYMPH NODES: Nontender, nonenlarged. THYROID: Not enlarged. Nontender. No nodules. LUNGS: Respiratory effort, unlabored. CHEST: Normal curvature. No thoracic deformity. No chest wall tenderness. Percussion, resonant. Auscultation, clear. No wheezes, no rales, no rhonchi. CARDIOVASCULAR: Precordial exam, nondisplaced. No heaves or pericardial thrills. Rate and rhythm, regular. Heart sounds, normal S1, normal S2. No S3, no gallop, no rub. Systolic murmur, not heard. Diastolic murmur, not heard. EXTREMITIES: No cyanosis, no edema. Peripheral pulses, full and equal in all extremities, except as noted. No bruits appreciated. ABDOMEN: Soft, nondistended. Normal aorta. No bruit. Nontender. No masses. Liver, nontender, no hepatomegaly. Spleen, nontender, no splenomegaly. MUSCULOSKELETAL: No joint tenderness. No joint swelling. No erythema. NEUROLOGICAL: Normal gait, normal strength, normal tone. SKIN: Warm and dry. REVIEW OF SYSTEMS: The patient reports easy bruising but reports no swollen glands. The patient reports no fever, no night sweats, no significant weight gain, no significant weight loss. No significant exercise tolerance. The patient reports no dry eyes, no irritation, no vision change. Patient reports no difficulty hearing and no ear pain. Patient reports no frequent nose bleeds or nose and sinus problems. Patient reports on arm pain on exertion. No shortness of breath while lying down. No history of heart murmur. Patient reports no cough, no wheezing or coughing up blood. Patient reports no abdominal pain, no vomiting. Normal appetite. No diarrhea and not vomiting blood. No nausea and no constipation. Patient reports no incontinence. No difficulty urinating. No hematuria. No increased frequency. Patient reports no muscle aches. No weakness, no arthralgias, no back pain. No swelling of the extremities. Patient reports no abnormal mole, no jaundice, no rashes. Reports HISTORY AND PHYSICAL [id number] RADHAMUKESHMARQUES ROSE no loss of consciousness. No weakness and no numbness. No seizures, dizziness, or headaches. The patient reports no depression, no sleep disturbance, feeling safe in a relationship and no alcohol abuse. Patient reports on fatigue. Reports no runny nose or sinus pressure. No itching, no hives, and no frequent sneezing. OVERALL IMPRESSION: Anginal symptomatology with significant disease of the LAD and circumflex. We will proceed with transcatheter revascularization of these territories. TRANSINT:[id number] Voice Confirmation ID: [id number] DOCUMENT ID: [id number] NICK LAZARO MD at 1711 CC: [id number] DICTATION DATE: 08/25/17 1008 SCHEDULING COORDINATOR: 08/25/17 1038 REG [facility] [address] [place] [address]
--- NOTE | ~2017-08-25 | HEMODYNAMI ---
PATIENT:MARQUES GARCIA MEDICAL RECORD: [id number] : 62 LOCATION:[facility] ADMISSION DATE: 08/25/17 Generatedon:08/25/201710:45 Patient name: MARQUES GARCIA Patient #: [id number] SSN: : Date of study: 08/25/2017 Page: Of Hemodynamic Procedure Report Patient Data Patient Demographics Procedure consent was obtained First Name: MARQUES Gender: Female Last Name: RADHA : 1960 [facility] Initial: ROSE Age: 57 year(s) Patient #: [id number] Race: Unknown Additional ID: [id number] Contact details [address]: [address] [place] [address] State: [place] City: [place] Zip code: [address] Past Medical History Allergies Allergen Reaction Date Comments Reported Other allergy 08/18/2017 CYMBALTA, DOLOBID, LIPITOR, NEGGRAM, SULFA, TYLENOL, VISTARIL Admission Admission Data Admission Date: 08/25/2017 Admission Time: 7:45 Procedure Procedure Types Cath Procedure PCI Procedure Coronary Stent Coronary Stent Initial Procedure Description Procedure Date Procedure Date: 08/25/2017 Procedure Start Time: 10:35 Procedure End Time: 10:45 Procedure Staff Name Function Rubens Castillo MD Performing Physician Kori Wong RT Monitor Nura Montes RN Nurse Kristin Jacinto RT Scrub Procedure Data Cath Procedure Fluoroscopy Diagnostic fluoroscopy Total fluoroscopy Time: 0.9 time: 0.9 min min Diagnostic fluoroscopy Total fluoroscopy dose: 208 dose: 208 mGy mGy Contrast Material Contrast Material Type Amount (ml) Isovue 300 27 Entry Location Entry Primary Successful Side Size Upsize Upsize Entry Closure Succes sful Closure Location (Fr) 1 (Fr) 2 (Fr) Remarks Device Remarks Femoral Right 6 Fr Exoseal artery Short Estimated blood loss: 10 ml Procedure Complications No complications Procedure Medications Medication Administration Route Dosage 0.9% NaCl I.V. 100 ml/hr Oxygen etCO2 Nasal cannula 2 l/min Heparin Flush Bag added to field 2 bags (1000units/500ml NS) Lidocaine 2% added to field 20 Versed I.V. 2 mg Fentanyl I.V. 100 mcg Fentanyl I.V. 100 mcg Versed I.V. 2 mg Versed I.V. 2 mg Heparin Bolus I.V. 4000 units Plavix P.O. 75 mg Hemodynamics Rest Heart Rate: 74 (bpm) Snapshots Pre Cath Intra NCS Post Cath Vital Signs Time Heart Resp SPO2 etCO2 NIBP (mmHg) Rhythm Pain Sedation Rate (ipm) (%) (mmHg) Status Level (bpm) 10:25:17 73 19 99 0 125/79(102) NSR 0 (11) 10(A) , No pain 10:30:00 70 16 98 0 126/75(99) NSR 0 (11) 10(A) , No pain 10:34:41 70 17 97 24.5 131/82(107) NSR 0 (11) 10(A) , No pain 10:39:27 53 36 94 0 109/70(84) NSR 0 (11) 10(A) , No pain 10:44:41 65 8 96 0 128/74(101) NSR 0 (11) 10(A) , No pain Medications Time Medication Route Dose Verified Delivered Reason Notes Effectiveness by by 10:23:46 0.9% NaCl I.V. 100 Nura Nura Per physician ml/hr Jyoti Montes RN RN 10:23:57 Oxygen etCO2 2 Nura Nura Per physician Nasal l/min Jyoti Montes cannula RN RN 10:24:09 Heparin Flush added 2 Nura Nura used for Bag to bags Jyoti Montes procedure (1000units/500ml field RN RN NS) 10:24:21 Lidocaine 2% added 20ml Nura Nura for local to vial Jyoti Montes anesthetic field RN RN 10:33:16 Versed I.V. 2 mg Nura Nura for sedation Jyoti Montes RN RN 10:33:25 Fentanyl I.V. 100 Nura Nura for sedation mcg Jyoti Montes RN RN 10:34:55 Fentanyl I.V. 100 Nura Nura for sedation mcg Jyoti Montes RN RN 10:35:04 Versed I.V. 2 mg Nura Nura for sedation Jyoti oMntes RN RN 10:37:34 Versed I.V. 2 mg Nura Nura for sedation Jyoti Montes RN RN 10:39:08 Heparin Bolus I.V. 4000 Nura Nura for units Jyoti Montes anticoagulation RN RN 10:42:31 Plavix P.O. 75 mg Nura Lyman for Jyoti Montes antiplatelet RN RN therapy Procedure Log Time Note 10:12:45 Nura Montes RN sent for patient. Start room use. 10:12:46 Time tracking: Regular hours (M-F 7:00 - 5:00) 10:12:50 Plan of Care:Hemodynamics will remain stable., Cardiac rhythm will remain stable., Comfort level will be maintained., Respiratory function will remain adequate., Patient/ family verbilizes understanding of procedure., Procedure tolerated without complication., Recovers from procedure without complications.. 10:14:58 Patient received from Pre/Post Procedure Room to CCL 1 Alert and oriented. Tansferred to table in Supine position. 10:15:00 Warm blankets applied, and nieves hugger turned on for patient comfort. 10:15:00 Correct patient and procedure confirmed by team. 10:15:02 Signed procedure consent form obtained from patient. 10:15:03 ECG and BP/O2 sat monitors applied to patient. 10:15:04 Full Disclosure recording started 10:23:46 0.9% NaCl 100 ml/hr I.V. was administered by Nura Montes RN; Per physician; 10:23:57 Oxygen 2 l/min etCO2 Nasal cannula was administered by Nura Montes RN; Per physician; 10:24:09 Heparin Flush Bag (1000units/500ml NS) 2 bags added to field was administered by Nura Montes RN; used for procedure; 10:24:21 Lidocaine 2% 20ml vial added to field was administered by Nura Montes RN; for local anesthetic; 10:24:26 Vital chart was started 10:24:41 Baseline sample Acquired. 10:25:50 Rhythm: sinus rhythm 10:25:59 H&P Date Dictated: 08/25/2017 New H&P dictated by physician.. 10:26:00 Pre-procedure instructions explained to patient. 10:26:01 Pre-op teaching completed and patient verbalized understanding. 10:26:03 Family in waiting room. 10:26:06 Patient NPO since Midnight. 10:26:51 Is the patient allergic to Iodine/contrast media? No. 10:26:54 Is patient on blood thinner?Yes 10:26:56 ACC The patient was administered the following blood thiners within the last 24 hours: ACCPlavix 10:27:14 Patient diabetic? Yes. 10:27:15 If diabetic: On Metformin? Yes 10:28:01 If on Metformin: Last Dose? 08/24/2017 10:28:06 Previous problem with sedation/anesthesia? No ? 10:28:07 Snore? Yes 10:28:09 Sleep apnea? No 10:28:10 Deviated septum? No 10:28:10 Opens mouth fully? Yes 10:28:11 Sticks out tongue? Yes 10:28:18 Dentures? Yes in 10:28:29 Pre procedure: right dorsailis pedis pulse 2+ Normal; easily identifiable; not easily obliterated 10:28:31 Patient pain scale 0/10 ?. 10:28:38 IV patent on arrival in left forearm with 0.9% NaCl at [facility]. 10:28:40 Lab results completed and on chart. 10:28:42 Right groin area was prepped with chlora-prep and draped in sterile fashion 10:28:43 Alarms reviewed by R. N. 10:28:43 Sharps counted by scrub and verified by R.N. 10:29:09 Use device set CATH PACK 10:29:12 Use device set TAUTH PCI 10:29:13 ACIST Syringe (85596) opened to sterile field. 10:29:14 ACIST Hand Control (76925) opened to sterile field. 10:29:15 ACIST Manifold (31955) opened to sterile field. 10:29:16 Medline Cath Pack ([id number]) opened to sterile field. 10:29:16 Bag Decanter (2002) opened to sterile field. 10:29:17 DIAGNOSTIC WIRE .035 260cm J wire (620732) opened to sterile field. 10:29:17 INFLATOR Merit BasixCompak (XT0058) opened to sterile field. 10:29:49 SHEATH Prelude 6Fr 0.035 (VDH-7A-45-035) opened to sterile field. 10:29:59 CHOICE PT Extra Support 182cm wire ([id number]) opened to sterile field. 10:31:21 Final Timeout: patient, procedure, and site verified with staff and physician. All members of the team are in agreement. 10::23 Right groin site verified by team. 10::25 Physical assessment completed. ASA score P 2 - A patient with mild systemic disease as per Rubens Castillo MD. 10:31:29 Sedation plan: IV Moderate Sedation Medication:Versed, Fentanyl 10:32:21 Procedure started. 10:32:39 Zero performed for pressure channel P1 10:32:44 Zero performed for pressure channel P1 10:33:02 GUIDE 6FR XB 3.5 catheter ([id number]) opened to sterile field. 10:33:16 Versed 2 mg I.V. was administered by Nura Montes RN; for sedation; 10:33:25 Fentanyl 100 mcg I.V. was administered by Nura Montes RN; for sedation; 10:34:55 Fentanyl 100 mcg I.V. was administered by Nura Montes RN; for sedation; 10:35:04 Versed 2 mg I.V. was administered by Nura Montes RN; for sedation; 10:35:14 Local anesthetic to right femoral artery with Lidocaine 2% by Rubens Castillo MD.INITIAL ACCESS ONLY 10:36:33 A 6 Fr Short sheath was inserted into the Right Femoral artery 10:36:59 6 Fr XB 3.5 guide catheter was inserted over the wire 10:37:34 Versed 2 mg I.V. was administered by Nura Montes RN; for sedation; 10:38:30 CHOICE PT ES wire advanced. 10:39:08 Heparin Bolus 4000 units I.V. was administered by Nura Montes RN; for anticoagulation; 10:39:48 Place stent Inflation Number: 1 A BONNIE RX 2.25 x 22 stent ([id number]) was prepped and advanced across the 1st Ob Shiela. The stent was deployed at 13 BILLY for 0:07 (min:sec). 10:40:08 Stent catheter was removed intact over wire. 10:40:09 Wire removed. 10:40:09 Guide catheter removed. 10:40:23 Sheath removed intact; hemostasis achieved with Exoseal to the Right Femoral artery. 10:40:25 Procedure ended.(Physican Out) 10:41:31 Fluoroscopy time 00.90 minutes. 10:41:34 Flurop Dose total: 208 10:41:34 Fluoroscopy dose: 208 mGy 10:41:42 Contrast amount:Isovue 300 27ml. 10:41:43 Sharps counted by scrub and verified by R.N. 10:41:47 Insertion/operative site no bleeding no hematoma. 10:41:50 Post-op/insertion site Right Femoral artery dressed using a 4 x 4 and Tegaderm. 10:41:53 Post right femoral artery:stable, clean and dry 10:41:55 Post Procedure Pulses reassessed and unchanged 10:42:02 Post-procedure physical assessment completed. ASA score P 2 - A patient with mild systemic disease as per Rubens Castillo MD. 10:42:04 Post procedure rhythm: unchanged. 10:42:06 Estimated blood loss: 10 ml 10:42:08 Post procedure instruction explained to patient.Patient verbalizes understanding. 10:42:09 Patient needs reinforcement of post procedure teaching. 10:42:26 Procedure Complication : No complications 10:42:28 See physician's report for complete and final results. 10:42:31 Plavix 75 mg P.O. was administered by Nura Montes RN; for antiplatelet therapy; 10:42:37 EXOSEAL 6Fr (EX600) opened to sterile field. 10:42:46 Tegaderm 4 x 4 (1626W) opened to sterile field. 10:44:10 Procedure and supply charges have been captured, reviewed, submitted and are correct. 10:45:26 Vital chart was stopped 10:45:27 Report given to Pre/Post Procedure Room. 10:45:30 Patient transfered to Pre/Post Procedure Room with Stretcher. 10:45:38 Procedure ended. 10:45:38 Full Disclosure recording stopped 10:45:40 End room use (Document Last) Intervention Summary Intervention Notes Time ActionType Lesion and Equipment Used Action# Pressure Duration Attributes 10:39:[address] Place stent 1st Ob Shiela BONNIE RX 2.25 x 1 13 00:07 22 stent ([id number]) Device Usage Item Name Manufacture Quantity Catalog Number Hospital Part Current Minimal Lot# / Charge Number Stock Stock Serial# Code ACIST Syringe Acist 1 36485 574754 130781 410097 20 (87503) [employer] ACIST Hand Acist 1 97323 364520 810491 064632 5 Control (39152) Medical Systems Inc ACIST Manifold Acist 1 21076 668771 696336 049726 5 (19557) Medical Systems Inc Medline Cath Cardinal 1 [id number] 734371 35050 949494 5 Pack Health ([id number]) Bag Decanter Microtek 1 2001S 318218 82036 451236 5 (2001S) Medical Inc. DIAGNOSTIC WIRE [place] 1 909848 047386 188864 508672 30 .035 260cm J wire (780320) INFLATOR Merit Merit 1 UD3795 600950 882992 378311 15 [email or web address] Medical (KF0582) SHEATH Prelude Merit 1 BBL-4F-[id number] 663777 6771064 985813 5 6Fr 0.035 Medical (ZKG-0D-10-035) CHOICE PT Extra [place] 1 [id number] 531123 945418 345278 5 Support 182cm Scientific wire ([id number]) GUIDE 6FR XB Cardinal 1 [id number] 667010 453814 330971 2 3.5 catheter Lightwave Power (10189730) BONNIE RX 2.25 x Medtronic 1 [id number] 851034 7709557 720887 5 [id number] 22 stent ([id number]) EXOSEAL 6Fr Cardinal 1 EX600 701494 135044 768981 10 (EX600) Health Tegaderm 4 x 4 3M 1 1626W 006696 501241 455910 5 (1626W) Signature Audit Anthon Stage Time Signature Unsigned Intra-Procedure 08/25/2017 Kori 10:45:51 AM Counts RT(R) Signatures Monitor : Kori Signature : Counts RT Date : Time : [address] [address]
--- NOTE | ~2017-08-25 | OP ---
PATIENT NAME: MARQUES GARCIA MEDICAL RECORD: [id number] :62 LOCATION:[facility] ADMISSION DATE: SURGEON: NICK LAZARO MD DATE OF OPERATION: 08/25/2017 PROCEDURES: 1. PTCA stent left circumflex. 2. Selective coronary angiography. INDICATION: Angina and coronary artery disease. PROCEDURE IN DETAIL: After informed consent was obtained and after a detailed explanation of the risks, benefits as well as alternative therapies, the patient elected to proceed with angiogram and angioplasty. The right femoral area was prepped and draped in normal sterile fashion. The right femoral artery was cannulated via modified Seldinger technique with placement of 6-[place]izen [place] sheath. All catheters exchanged through this sheath. FINDINGS: The left circumflex has a long area of 80% stenosis addressed with a 2.25 x 22 mm Nathan stent. Result was 0% residual stenosis. OVERALL IMPRESSION: Successful percutaneous transluminal coronary angioplasty stent of the left circumflex going from 80% initial stenosis to 0% residual. TRANSINT:[id number] Voice Confirmation ID: [id number] DOCUMENT ID: [id number] NICK LAZARO MD at 1711 CC: [id number] DICTATION DATE: 08/25/17 1048 RN EMERGENCY ROOM: 08/25/17 1218 [place] [id number] [place] [id number]
[~2017-08-25 07:45] MED LIST changes: +AMBIEN5 MG PO; +ASPIRIN81 MG PO; +BASAGLAR K100 UNIT/1 SC; +BENADRYL25 MG PO; +HYDROCODONE-IB1 EAC3 PO; +METFORMIN HCL500 M1 PO; +NITROSTAT0.4 MG SL; +NOVOLOG100 U/M1 SC; +PLAVIX75 MG PO; +PRALUENT P75 MG/1 ML SC; +SOMA350 MG
[2017-08-25 08:39] LABS: BASOPHILS 0.3 % (0-2); HEMATOCRIT 41.7 % (36.0-48.0); HEMOGLOBIN 14.7 g/dL (12-16); IMMATURE GRANULOCYTES 0.9 % (0-5); MCHC 35.3 g/dL (31.0-37.0); MEAN PLATELET VOLUME 9.6 fL (7.4-10.4); MONOCYTES 6.7 % (2-11); NEUTROPHILS 51.1 % (40-80); PLATELET COUNT 285 10x3/uL (130-400); RBC 4.74 10x6/uL (4.00-5.40); WBC 7.9 10x3/uL (4.8-10.8)
[2017-08-25 08:47] LABS: CALC OSMOLALITY 279 mosm/kg (275-300); CALCIUM 10.2 mg/dL (8.5-10.1); CARBON DIOXIDE 26.4 mmol/L (21.0-32.0); CHLORIDE - SERUM 100 mmol/L (98-107); CREATININE - SERUM 0.8 mg/dL (0.6-1.3); GLUCOSE 159 mg/dL (74-106); POTASSIUM - SERUM 4.5 mmol/L (3.5-5.1); SODIUM 138 mmol/L (136-145); UREA NITROGEN 15 mg/dL (7-18); eGFR NON AFRICAN AMERICAN 78 mL/min (90-120)
== END | disposition home or self-care (01) ==
LOC: D.CATH 07:45
PROVIDERS: Internal Medicine Interventional Cardiology
DX: I25.119 Atherosclerotic heart disease of native coronary artery with unspecified angina pectoris (principal); I10 Essential (primary) hypertension; E78.5 Hyperlipidemia, unspecified; Z95.5 Presence of coronary angioplasty implant and graft; Z01.812 Encounter for preprocedural laboratory examination

== ENCOUNTER 2017-09-06 11:29 | Emergency (ER) | payer MEDICARE ==
[~2017-09-06] VITALS: Ht 165.1 cm; Wt 97.7 kg
[2017-09-06 11:35] VITALS: Ht 165.1 cm; Wt 97.7 kg
[2017-09-06 12:37] LABS: BASOPHILS 0.3 % (0-2); EOSINOPHILS 1.6 % (0-7); HEMATOCRIT 38.1 % (36.0-48.0); HEMOGLOBIN 13.3 g/dL (12-16); IMMATURE GRANULOCYTES 0.6 % (0-5); LYMPHOCYTES 29.2 % (15-50); MCH 30.7 pg (26.0-34.0); MCHC 34.9 g/dL (31.0-37.0); MEAN PLATELET VOLUME 9.3 fL (7.4-10.4); MONOCYTES 6.5 % (2-11); NEUTROPHILS 61.8 % (40-80); PLATELET COUNT 233 10x3/uL (130-400); RBC 4.33 10x6/uL (4.00-5.40); RDW 12.8 % (11.5-14.5); WBC 6.3 10x3/uL (4.8-10.8)
[2017-09-06 12:53] LABS: ALBUMIN 3.2 g/dL (3.4-5.0); ANION GAP 13.3 mmol/L (8-16); BILIRUBIN - TOTAL 0.3 mg/dL (0.2-1.3); CALCIUM 8.9 mg/dL (8.5-10.1); CARBON DIOXIDE 25.6 mmol/L (21.0-32.0); CREATININE - SERUM 0.9 mg/dL (0.6-1.3); POTASSIUM - SERUM 3.9 mmol/L (3.5-5.1); PROTEIN - SERUM 6.7 g/dL (6.4-8.2)
[2017-09-06 14:09] VITALS: BP 160/84
== END 2017-09-06 14:45 | disposition home or self-care (01) ==
LOC: D.ER 11:29
PROVIDERS: Family Medicine
DX: T14.8XXA Other injury of unspecified body region, initial encounter (principal); V49.9XXA Car occupant (driver) (passenger) injured in unspecified traffic accident, initial encounter; Y93.89 Activity, other specified; Y92.410 Unspecified street and highway as the place of occurrence of the external cause

== ENCOUNTER → 2017-11-12 09:53 | Outpatient (CLI) | payer MEDICARE ==
[2017-09-06 11:35] VITALS: BMI 35.8
== END | disposition home or self-care (01) ==
LOC: D.US 09:53
DX: M79.9 Soft tissue disorder, unspecified (principal)

== ENCOUNTER 2018-08-08 19:46 | Observation (INO) | payer MEDICARE ==
--- NOTE | ~2018-08-08 | HEMODYNAMI ---
PATIENT:MARQUES GARCIA MEDICAL RECORD: [id number] : 62 [facility] ADMISSION DATE: 08/09/18 Generatedon:08/09/201811:25 Patient name: MARQUES GARCIA Patient #: [id number] SSN: : Date of study: 08/09/2018 Page: Of Hemodynamic Procedure Report Patient Data Patient Demographics Procedure consent was obtained First Name: MARQUES Gender: Female Last Name: RADHA : 1960 [facility] Initial: ROSE Age: 58 year(s) Patient #: [id number] Race: Unknown Additional ID: [id number] Contact details Address: [address] [place] [address] [facility] [place] State: [place] City: [place] Zip code: [address] Past Medical History Allergies Allergen Reaction Date Comments Reported Other allergy 08/18/2017 CYMBALTA, DOLOBID, LIPITOR, NEGGRAM, SULFA, TYLENOL, VISTARIL Other allergy 08/09/2018 Hydroxyzine. Admission Admission Data Admission Date: 08/09/2018 Admission Time: 0:05 Admit Source: Emergency department Room #: D.2114 Procedure Procedure Types Cath Procedure Diagnostic Procedure LHC LH w/Coronaries FFR/IVUS FFR Initial Sedation Charges Moderate Sedation up to 15 minutes Procedure Description Procedure Date Procedure Date: 08/09/2018 Procedure Start Time: 11:04 Procedure End Time: 11:24 Procedure Staff Name Function Ryan Nguyen MD Performing Physician Sj Griffith RT Monitor Kristin Jacinto RT Scrub Christy Andrews RN Nurse Procedure Data Cath Procedure Fluoroscopy Diagnostic fluoroscopy Total fluoroscopy Time: 2.6 time: 2.6 min min Diagnostic fluoroscopy Total fluoroscopy dose: 508 dose: 508 mGy mGy Contrast Material Contrast Material Type Amount (ml) Isovue 300 52 Entry Location Entry Primary Successful Side Size Upsize Upsize Entry Closure Succes sful Closure Location (Fr) 1 (Fr) 2 (Fr) Remarks Device Remarks Femoral Right 5 Fr 6 Fr Exoseal artery Short Estimated blood loss: 10 ml Diagnostic catheters Device Type Used For End Catheter Placement MULTIPACK JL 4.0 5Fr Procedure catheter MULTIPACK 3DRC 5Fr Procedure catheter MULTIPACK Pigtail 5 Fr Procedure catheter Procedure Complications No complications Procedure Medications Medication Administration Route Dosage 0.9% NaCl I.V. 100 ml/hr Oxygen etCO2 Nasal cannula 2 l/min Lidocaine 2% added to field 20 Heparin Flush Bag added to field 2 bags (1000units/500ml NS) Versed I.V. 2 mg Fentanyl I.V. 50 mcg Versed I.V. 2 mg Fentanyl I.V. 50 mcg Versed I.V. 2 mg Fentanyl I.V. 50 mcg Solumedrol I.V. 125 mg Hemodynamics Rest Heart Rate: 64 (bpm) Pressure Samples Time Site Value (mmHg) Purpose Heart Use Rate(bpm) 11:13 LV 125/6,10 EDP 66 Gradients Valve Time Site Site Mean SEP/DFP Peak To Heart Use 1 2 (mmHg) (sec/min) Peak Rate (mmHg) (bpm) Aortic 11:13 LV AO 66 Snapshots Pre Cath Intra NCS Post Cath Vital Signs Time Heart Resp SPO2 etCO2 NIBP (mmHg) Rhythm Pain Sedation Rate (ipm) (%) (mmHg) Status Level (bpm) 10:53:16 63 14 99 23 147/81(127) NSR 0 (11) 10(A) , No pain 10:57:38 63 16 98 26 134/85(120) NSR 0 (11) 10(A) , No pain 11:01:56 67 10 99 13.4 134/78(108) NSR 0 (11) 10(A) , No pain 11:06:06 68 14 99 28.5 123/92(111) NSR 0 (11) 10(A) , No pain 11:10:26 61 13 98 29 133/69(109) NSR 0 (11) 10(A) , No pain 11:14:42 63 14 97 26 127/72(108) NSR 0 (11) 10(A) , No pain 11:19:02 61 15 98 26 133/75(97) NSR 0 (11) 10(A) , No pain 11:23:22 68 23 99 22.5 130/74(108) NSR 0 (11) 10(A) , No pain Medications Time Medication Route Dose Verified Delivered Reason Notes Eff ectiveness by by 10:52:03 0.9% NaCl I.V. 100 Ryan Christy used for ml/hr [place] Darryl procedure RN 10:52:10 Oxygen etCO2 2 Ryan Christy used for Nasal l/min [place] Darryl procedure cannula MD PINEDA 10:52:14 Lidocaine 2% added 20ml Ryan Davis for local to vial [facility] anesthetic field MD LAINEZ 10:52:18 Heparin Flush added 2 Ryan Ryan used for Bag to bags [facility] procedure (1000units/500ml field MD LAINEZ NS) 10:52:21 Solumedrol I.V. 125 Ryan Christy Per mg Wendy Darryl physician RN 10:59:44 Versed I.V. 2 mg Ryan Christy for WendyZay Andrews sedation RN 10:59:49 Fentanyl I.V. 50 Ryan Christy for mcg [facility] Andrews sedation RN 11:00:12 Versed I.V. 2 mg Ryan Christy for WendyZay Andrews sedation RN 11:00:16 Fentanyl I.V. [address] Christy for mcg [facility] Zay Andrews sedation RN 11:05:38 Versed I.V. 2 mg Ryan Christy for WendyZay Andrews sedation MD PINEDA 11:05:42 Fentanyl I.V. [address] Ryan Christy for mcg [facility] Zay Andrews sedation MD PINEDAmotion and time study teacher Log Time Note 10:29:23 Informed consent obtained and on chart 10:29:39 Admit Source: Emergency department 10:30:04 Diagnostic Cath status Elective 10:30:06 Christy Andrews RN sent for patient. Start room use. 10:30:06 Time tracking: Regular hours (M-F 7:00 - 5:00) 10:30:13 Plan of Care:Hemodynamics will remain stable., Cardiac rhythm will remain stable., Comfort level will be maintained., Respiratory function will remain adequate., Patient/ family verbilizes understanding of procedure., Procedure tolerated without complication., Recovers from procedure without complications.. 10:31:28 H&P Date Dictated: 08/09/2018 Within 30 days and on chart.. 10:44:22 Patient received from Med II to [facility] 1 Alert and oriented. Tansferred to table in Supine position. 10:44:24 Warm blankets applied, and nieves hugger turned on for patient comfort. 10:44:25 Correct patient and procedure confirmed by team. 10:44:25 ECG and BP/O2 sat monitors applied to patient. 10:44:26 Pre-procedure instructions explained to patient. 10:44:27 Pre-op teaching completed and patient verbalized understanding. 10:44:29 Family in waiting room. 10:44:32 Patient NPO since Midnight. 10:44:52 Patient allergic to Other allergyHydroxyzine. 10:51:55 Vital chart was started 10:52:03 0.9% NaCl 100 ml/hr I.V. was administered by Christy Andrews RN; used for procedure; 10:52:10 Oxygen 2 l/min etCO2 Nasal cannula was administered by Christy Andrews RN; used for procedure; 10:52:14 Lidocaine 2% 20ml vial added to field was administered by Ryan Nguyen MD; for local anesthetic; 10:52:18 Heparin Flush Bag (1000units/500ml NS) 2 bags added to field was administered by Ryan Nguyen MD; used for procedure; 10:52:21 Solumedrol 125 mg I.V. was administered by Christy Andrews RN; Per physician; 10:56:44 Is the patient allergic to Iodine/contrast media? Yes. 10:56:45 Was the patient premedicated? Yes 10:56:52 Is patient on blood thinner?Yes 10:57:11 Patient diabetic? Yes. 10:57:12 If diabetic: On Metformin? Yes 10:57:15 If on Metformin: Last Dose? 08/07/2018 10:57:18 Previous problem with sedation/anesthesia? No ? 10:57:19 Snore? Yes 10:57:20 Sleep apnea? Yes 10:57:21 Deviated septum? No 10:57:22 Opens mouth fully? Yes 10:57:22 Sticks out tongue? Yes 10:57:25 Airway obstruction? No ? 10:57:28 Dentures? Yes in tight 10:57:36 Pre procedure: right dorsailis pedis pulse 2+ Normal; easily identifiable; not easily obliterated 10:57:42 Patient pain scale 3/10 chest pain. 10:57:51 IV patent on arrival in left antecubital with 0.9% NaCl at [facility]. 10:58:41 Lab Result : BUN 9 mg/dl 10:58:41 Lab Result : Creatinine 0.9 mg/dl 10:58:41 Lab Result : Hemoglobin 14.1 g/dl 10:58:41 Lab Result : Hematocrit 40 % 10:58:43 Lab results completed and on chart. 10:58:45 Right groin area was prepped with chlora-prep and draped in sterile fashion 10:58:46 Alarms reviewed by R. N. 10:58:46 Sharps counted by scrub and verified by R.N. 10:58:48 Use device set Femoral Dx 10:58:49 ACIST Syringe (56602) opened to sterile field. 10:58:49 Bag Decanter (2002S) opened to sterile field. 10:58:49 Medline Cath Pack ([id number]) opened to sterile field. 10:58:51 ACIST Manifold (85069) opened to sterile field. 10:58:51 ACIST Hand Control (36834) opened to sterile field. 10:58:53 Tegaderm 4 x 4 (1626W) opened to sterile field. 10:58:54 SHEATH 5FR Monsey (YTI632) opened to sterile field. 10:58:54 DIAGNOSTIC Multipack 5Fr catheter set (JP7211) opened to sterile field. 10:58:55 DIAGNOSTIC WIRE .035 260cm J wire (917895) opened to sterile field. 10:58:59 Baseline sample Acquired. 10:59:01 Rhythm: sinus rhythm 10:59:03 Full Disclosure recording started 10:59:05 Physician arrived 10:59:06 --------ALL STOP TIME OUT------ 10:59:06 Final Timeout: patient, procedure, and site verified with staff and physician. All members of the team are in agreement. 10:59:08 Right groin site verified by team. 10:59:11 Maximum allowable Isovue 300 dose 300ml. Physician notified. (300ml for normal creatinines. For patients with creatinine of 1.7 or higher multiply weight(kg) x 5 divided by creatinine.) 10:59:15 Fire Safety Assessment: A--An alcohol-based skin anteseptic being used preoperatively., C--Open oxygen or nitrous oxide is being used., D--An ESU, laser, or fiber-optic light is being used. 10:59:18 Physical assessment completed. ASA score P 2 - A patient with mild systemic disease as per Ryan Nguyen MD. 10:59:20 Sedation plan: IV Moderate Sedation Medication:Versed, Fentanyl 10:59:44 Versed 2 mg I.V. was administered by Christy Andrews RN; for sedation; 10:59:49 Fentanyl 50 mcg I.V. was administered by Christy Andrews RN; for sedation; 11:00:00 Zero performed for pressure channel P1 11:00:12 Versed 2 mg I.V. was administered by Christy Andrews RN; for sedation; 11:00:16 Fentanyl 50 mcg I.V. was administered by Christy Andrews RN; for sedation; 11:04:54 Procedure started. 11:04:57 Local anesthetic to right femoral artery with Lidocaine 2% by Ryan Nguyen MD.INITIAL ACCESS ONLY 11:05:07 A 5 Fr sheath was inserted into the Right Femoral artery 11:05:10 Zero performed for pressure channel P1 11:05:18 Zero performed for pressure channel P1 11:05:38 Versed 2 mg I.V. was administered by Christy Andrews RN; for sedation; 11:05:42 Fentanyl 50 mcg I.V. was administered by Christy Andrews RN; for sedation; 11:07:13 A MULTIPACK JL 4.0 5Fr catheter was advanced over the wire and used for Procedure. 11:07:23 LCA angiography performed. 11:09:33 Catheter exchanged over wire. 11:09:38 A MULTIPACK 3DRC 5Fr catheter was advanced over the wire and used for Procedure. 11:11:59 RCA angiography performed. 11:12:06 Catheter exchanged over wire. 11:12:10 A MULTIPACK Pigtail 5 Fr catheter was advanced over the wire and used for Procedure. 11:12:41 LV gram done using MARTINEZ 11:12:43 Injector settings: Ml/sec: 10, Volume: 20, 11:12:48 LV hemodynamics recorded. 11:13:42 EF : 50 % 11:14:59 Catheter removed. 11:15:11 Pollock Problemsolutions24rata Plus pressure wire (09510H) opened to sterile field. 11:15:12 INFLATOR Merit BasixCompak (QA0177) opened to sterile field. 11:15:12 SHEATH 6FR Monsey (DTP466) opened to sterile field. 11:15:18 GUIDE 6FR HS I catheter (LA6HSI) opened to sterile field. 11:15:39 Sheath upsized to a 6 Fr Short. 11:15:48 6 Fr HS 1 guide catheter was inserted over the wire 11:18:12 FFR/IFR wire advanced. 11:20:01 Wire advanced across lesion. 11:21:10 Wire removed. 11:21:12 Guide catheter removed. 11:21:26 RCA lesion measured at 0.97 with IFR 11:21:42 EXOSEAL 6Fr (EX600) opened to sterile field. 11:21:50 Sheath removed intact; hemostasis achieved with Exoseal to the Right Femoral artery. 11:21:51 Procedure ended.(Physican Out) 11:23:06 Fluoroscopy time 02.60 minutes. 11:23:09 Flurop Dose total: 508 11:23:09 Fluoroscopy dose: 508 mGy 11:23:12 Contrast amount:Isovue 300 52ml. 11:23:13 Sharps counted by scrub and verified by R.N. 11:23:14 Insertion/operative site no bleeding no hematoma. 11:23:17 Post-op/insertion site Right Femoral artery dressed using a 4 x 4 and Tegaderm. 11:23:20 Post right femoral artery:stable, soft, clean and dry 11:23:22 Post Procedure Pulses reassessed and unchanged 11:23:23 Post-procedure physical assessment completed. ASA score P 2 - A patient with mild systemic disease as per Ryan Nguyen MD. 11:23:26 Post procedure rhythm: unchanged. 11:23:28 Estimated blood loss: 10 ml 11:23:30 Post procedure instruction explained to patient.Patient verbalizes understanding. 11:23:30 Patient needs reinforcement of post procedure teaching. 11:23:45 Procedure type changed to Cath procedure, Diagnostic procedure, LHC, LHC w/Coronaries, FFR/IVUS, FFR Initial, Sedation Charges, Moderate Sedation up to 15 minutes 11:24:05 Procedure and supply charges have been captured, reviewed, submitted and are correct. 11:24:07 Procedure Complication : No complications 11:24:09 Vital chart was stopped 11:24:09 See physician's report for complete and final results. 11:24:11 Report given to PCU. 11:24:13 Patient transfered to PCU with Stretcher. 11:24:15 Procedure ended. 11:24:15 Full Disclosure recording stopped 11:24:18 End room use (Document Last) Device Usage Item Name Manufacture Quantity Catalog Hospital Part Current Minima l Lot# / Number Charge Number Stock Stock Serial# Code ACIST Acist 1 67316 837836 940983 528158 20 Syringe Medical (16169) Systems Inc Bag Microtek 1 509130 64705 955492 5 Decanter Medical Inc. () Medline Medline 1 [id number] 432144 93214 140719 5 Cath Pack ([id number]) ACIST Acist 1 55894 175559 040806 767753 5 Manifold Medical (01696) Systems Inc ACIST Hand Acist 1 77977 966697 683410 231597 5 Control Medical (18678) Systems Inc Tegaderm 4 3M 1 1626W 873768 647112 921229 5 x 4 (1626W) SHEATH 5FR Terumo 1 YWP034 699943 529862 076597 5 Monsey (GBI290) DIAGNOSTIC Cardinal 1 WV3491 115713 02239 069030 30 Multipack Health 5Fr catheter set (KR9460) DIAGNOSTIC St [place]iston 1 795905 710307 100913 944540 30 WIRE .035 260cm J wire (672508) MULTIPACK Cardinal 1 869247 5 JL 4.0 5Fr Health catheter MULTIPACK Cardinal 1 350746 5 3DRC 5Fr Health catheter MULTIPACK Cardinal 1 183960 5 Pigtail 5 Health Fr catheter Pollock Pollock 1 03245M 298605 324276151 566255 5 Verrata Plus pressure wire (96045G) INFLATOR Merit 1 KJ1689 480567 139850 707207 15 Syncurity Medical BasixCompak (WU1511) SHEATH 6FR Terumo 1 WYM824 433896 008833 697219 40 Monsey (UPC314) GUIDE 6FR Medtronic 1 LA6HSI 102119 54137 277453 1 HS I catheter (LA6HSI) EXOSEAL 6Fr Cardinal 1 EX600 589268 367104 338461 10 (EX600) Health Signature Audit Bryant Stage Time Signature Unsigned Intra-Procedure 08/09/2018 Sj Griffith 11:25:18 AM RT(R) Signatures Monitor : Sj Griffith RT Signature : Date : Time : [place] [id number] [place] [address]
[2018-08-08 19:58] VITALS: BMI 34.0
[2018-08-08 21:34] LABS: BASOPHILS 0.3 % (0-2); HEMOGLOBIN 14.1 g/dL (12-16); IMMATURE GRANULOCYTES 0.6 % (0-5); LYMPHOCYTES 32.5 % (15-50); MCH 30.3 pg (26.0-34.0); MCHC 35.3 g/dL (31.0-37.0); MCV 85.8 fL (80.0-100.0); MEAN PLATELET VOLUME 9.6 fL (7.4-10.4); MONOCYTES 5.5 % (2-11); NEUTROPHILS 60.1 % (40-80); PLATELET COUNT 277 10x3/uL (130-400); RBC 4.66 10x6/uL (4.00-5.40); RDW 13.5 % (11.5-14.5); WBC 6.9 10x3/uL (4.8-10.8)
[2018-08-08 21:44] LABS: APTT 27.7 SECONDS (22.8-39.4); INR 0.99 (0.85-1.17); PROTIME 12.6 SECONDS (11.6-15.0)
[2018-08-08 21:55] LABS: ALBUMIN 3.7 g/dL (3.4-5.0); ALKALINE PHOSPHATASE 73 U/L (46-116); ALT (SGPT) 28 U/L (10-68); BILIRUBIN - TOTAL 0.71 mg/dL (0.2-1.3); CALC OSMOLALITY 280 mosm/kg (275-300); CALCIUM 8.7 mg/dL (8.5-10.1); CARBON DIOXIDE 27.8 mmol/L (21.0-32.0); CHLORIDE - SERUM 105 mmol/L (98-107); CREATININE - SERUM 0.9 mg/dL (0.6-1.3); POTASSIUM - SERUM 4.1 mmol/L (3.5-5.1); PROTEIN - SERUM 7.4 g/dL (6.4-8.2); SODIUM 140 mmol/L (136-145); UREA NITROGEN 9 mg/dL (7-18); eGFR NON AFRICAN AMERICAN 68 mL/min (90-120)
[2018-08-08 21:57] LABS: GLUCOSE 154 mg/dL (74-106)
[2018-08-08 22:02] LABS: CKMB 0.3 U/L (0.0-3.6); CREATINE KINASE 38 UL (21-215); MAGNESIUM - SERUM 1.7 mg/dL (1.8-2.4)
[2018-08-08 22:04] LABS: TROPONIN-I < 0.017 ng/mL (0.000-0.060)
[2018-08-08 22:35] VITALS: BP 137/74
[2018-08-09 00:48] VITALS: BP 147/80
[2018-08-09 01:56] VITALS: BP 147/88
[2018-08-09 06:23] VITALS: BP 130/72
[2018-08-09 08:00] VITALS: BP 138/68
[2018-08-09 08:43] LABS: BASOPHILS 0.2 % (0-2); EOSINOPHILS 1.8 % (0-7); HEMATOCRIT 35.9 % (36.0-48.0); HEMOGLOBIN 12.6 g/dL (12-16); IMMATURE GRANULOCYTES 0.5 % (0-5); LYMPHOCYTES 38.6 % (15-50); MCH 29.8 pg (26.0-34.0); MCHC 35.1 g/dL (31.0-37.0); MCV 84.9 fL (80.0-100.0); MEAN PLATELET VOLUME 9.3 fL (7.4-10.4); MONOCYTES 6.9 % (2-11); RBC 4.23 10x6/uL (4.00-5.40); RDW 13.4 % (11.5-14.5); WBC 5.5 10x3/uL (4.8-10.8)
[2018-08-09 08:50] LABS: CALC OSMOLALITY 281 mosm/kg (275-300); CALCIUM 8.4 mg/dL (8.5-10.1); CARBON DIOXIDE 26.2 mmol/L (21.0-32.0); CHLORIDE - SERUM 107 mmol/L (98-107); CREATININE - SERUM 0.8 mg/dL (0.6-1.3); GLUCOSE 113 mg/dL (74-106); POTASSIUM - SERUM 3.6 mmol/L (3.5-5.1); SODIUM 142 mmol/L (136-145); UREA NITROGEN 8 mg/dL (7-18); eGFR NON AFRICAN AMERICAN 78 mL/min (90-120)
[2018-08-09 08:55] LABS: PLATELET COUNT 218 10x3/uL (130-400)
[2018-08-09 12:00] VITALS: BP 120/62
--- NOTE | 2018-08-09 12:26 | OP ---
PATIENT NAME: MARQUES GARCIA MEDICAL RECORD: [id number] :62 LOCATION:D.M2 D.2114 ADMISSION DATE:08/09/18 SURGEON: JEROME WATSON MD DATE OF OPERATION: 08/09/2018 PROCEDURE: Left heart catheterization, selective coronary angiography, plus IFR wire through the right coronary artery, right femoral artery approach. CATHETERS: A 5-Estonian sheath, 5/4 left and right Ney, 5/4 pig. The procedure was well tolerated. The patient returned to the vidal, sheath was removed. ExoSeal device was placed. FINDINGS: Left ventriculography in 30-degree MARTINEZ view: Normal wall motion. Normal systolic function. CORONARY ANATOMY: LEFT MAIN: Left main is free of disease. LAD: An area of previous stenting is widely patent. No evidence of restenosis. CIRCUMFLEX: Circumflex has a distal OM that is totally occluded. This was appreciated on the last angiography via Dr. Castillo. This does fill via collaterals from the right. Previously placed OM stent is widely. Right coronary artery distal to the previously showed an area of angiography appearing at least 70% stenosis. Therefore, a 5-Estonian sheath was exchanged for a 6-Estonian sheath. IFR wire was placed in the distal right coronary. This showed that the lesion was in fact non-flow restrictive. Procedure was terminated and the sheath was closed with ExoSeal device. TRANSINT:[id number] Voice Confirmation ID: [id number] DOCUMENT ID: [id number] JEROME WATSON MD at 1226 CC: [id number] DICTATION DATE: 08/09/18 1136 BUSINESS SUPERVISOR: 08/09/18 1221 ADM IN [facility] [address] [place] [address]
--- NOTE | 2018-08-09 16:00 | NUR ---
REVIEWEDV DISCHARGE INSTRUCTIONS WITH PT STATES UNDERSTANDING COPY GIVEN DCD [place] LOCK TO RFA WITH IV CATHETER INTACT SITE FREE OF REDNESS OR EDEMA PT DISCHARGED HOME IN STABLE CONDITION WITH ALL PERSONAL BELONGINGS VIA W/C
--- NOTE | 2018-08-10 08:53 | MORECARE ---
CASE MANAGEMENT DISCHARGE SUMMARY PATIENT: MARQUES GARCIA ROSE UNIT: [id number] ADM DATE: 08/09/18 AGE: 58 : 62 SEX: F ROOM/BED: D.5044 AUTHOR: MORENA GODOY PHYSICIAN: REFERRING PHYSICIAN: ELIUD SHEPPARD MD DATE OF SERVICE: 08/10/18 Discharge Plan Patient Name: MARQUES [facility]ARCIA [facility] : 1960 Planned Disposition: Home Anticipated Discharge Date: 08/09/18 Discharge Date: 08/09/2018 Expected LOS: 1 Initial Reviewer: [email or web address] Initial Review Date: 08/10/2018 Generated: 08/10/18 9:52 am Patient Name: MARQUES GARCIA Page [id number] at 0853 All edits/amendments must be made on the electronic document DICTATION DATE: 08/10/18 0852 COMPOSITION SIDING WORKER: LARRY 08/10/18 0852 RPT#: [id number] DC DATE:08/09/18 STATUS: DIS IN [facility] [address] [place] [address] END OF REPORT
--- NOTE | 2018-08-15 10:06 | CN ---
PATIENT NAME:MARQUES GARCIA MEDICAL RECORD: [id number] : 62 LOCATION:. D.2114 ADMIT DATE: 08/09/18 ACCOUNT: [id number] CONSULTING PHYSICIAN: JEROME WATSON MD REFERRING PHYSICIAN: ELIUD SHEPPARD MD DATE OF CONSULTATION: 08/09/2018 HISTORY OF PRESENT ILLNESS: A 58-year-old female with history of coronary artery disease, status post intervention in the past. Has been in quite a bit of stress lately, has been having increasing angina symptomatology. She noticed chest tightness and pressure when walking to her car. She is already on beta blockade and nitrates. Has history of diabetes mellitus. Was scheduled for stress testing; however, had nocturnal rest symptomology last night. We are asked to see her concerning her cardiovascular status. PAST MEDICAL HISTORY: Includes: 1. History of hypertension. 2. Hyperlipidemia. 3. Diabetes mellitus. 4. Coronary artery disease as described above. ALLERGIES: INCLUDE VISTARIL, TAVIST, AND TRAMADOL. MEDICATIONS: Typically include Phenergan 25 mg p.o. every 4 hours p.r.n., Plavix 75 every day, metoprolol 50 b.i.d., aspirin 81 every day, hydrocodone 7.5 every 6 hours p.r.n., insulin, Synthroid 112 mcg daily, metformin 0.5 gram b.i.d. SOCIAL HISTORY: Smokes about a pack a day. Nondrinker. She is able to take care of her ADLs. No set exercise program. Has been under more stress with her mother passing away in March. REVIEW OF SYSTEMS: The patient reports easy bruising but reports no swollen glands. The patient reports no fever, no night sweats, no significant weight gain, no significant weight loss. No significant exercise tolerance. The patient reports no dry eyes, no irritation, no vision change. Patient reports no difficulty hearing and no ear pain. Patient reports no frequent nose bleeds or nose and sinus problems. Patient reports on arm pain on exertion. No shortness of breath while lying down. No history of heart murmur. Patient reports no cough, no wheezing or coughing up blood. Patient reports no abdominal pain, no vomiting. Normal appetite. No diarrhea and not vomiting blood. No nausea and no constipation. Patient reports no incontinence. No difficulty urinating. No hematuria. No increased frequency. Patient reports no muscle aches. No weakness, no arthralgias, no back pain. No swelling of the extremities. Patient reports no abnormal mole, no jaundice, no rashes. Reports no loss of consciousness. No weakness and no numbness. No seizures, dizziness, or headaches. The patient reports no depression, no sleep disturbance, feeling safe in a relationship and no alcohol abuse. Patient reports on fatigue. Reports no runny nose or sinus pressure. No itching, no hives, and no frequent sneezing. PHYSICAL EXAMINATION: GENERAL: Pleasant female, in no acute distress, appears stated age. VITAL SIGNS: Blood pressure 130/72. Pulse 65 and regular. HEENT: Normocephalic, atraumatic. CONSULT REPORT [id number] MARQUES GARCIA NECK: No bruits noted. HEART: Regular. A II/ systolic ejection murmur. LUNGS: Good air excursion. ABDOMEN: Soft, nontender. EXTREMITIES: Pulse 2+. No edema. DIAGNOSTIC DATA: ECG shows nonspecific ST-T changes. IMPRESSION: Progressive angina with rest symptomology. We will plan for diagnostic angiography, intervention based on above. TRANSINT:[id number] Voice Confirmation ID: [id number] DOCUMENT ID: [id number] JEROME WATSON MD at 1006 CC: [id number] DICTATION DATE: 08/09/18830 DUE DILIGENCE COORDINATOR: 08/09/18 1340 DIS IN 08/09/18 [facility] [address] [place] [id number]
== END 2018-08-09 16:00 | disposition home or self-care (01) ==
LOC: D.ER 19:46 → OBSVTIME 08-09 00:05 → D.M2 08-09 00:05
PROVIDERS: Family Medicine; Internal Medicine Interventional Cardiology; ADMIT Emergency Medicine; ATTEND Emergency Medicine
DX: I25.119 Atherosclerotic heart disease of native coronary artery with unspecified angina pectoris (principal); I10 Essential (primary) hypertension; E78.5 Hyperlipidemia, unspecified; Z86.73 Personal history of transient ischemic attack (TIA), and cerebral infarction without residual deficits; E11.65 Type 2 diabetes mellitus with hyperglycemia

== ENCOUNTER 2019-07-30 14:54 | Emergency (ER) | payer MEDICARE ==
[~2019-07-30] VITALS: Ht 162.6 cm; Wt 89.5 kg
[~2019-07-30 14:54] MED LIST changes: +ADVAIR 250-501 EAC1 INH; +ALBUTEROL SULF8.5 GM INH; +DILAUDID2 MG PO; +LAMICTAL25 MG; -SYNTHROID100 MCG PO; +SYNTHROID125 MCG PO
[2019-07-30 15:02] VITALS: Ht 162.6 cm; Wt 89.5 kg
[2019-07-30] MEDS ORDERED: HYDROCODONE-IB1 EAC3 PO (16:39)
[2019-07-30 17:17] VITALS: BP 146/74
== END 2019-07-30 17:18 | disposition home or self-care (01) ==
LOC: D.ER 14:54
DX: S52.021A Displaced fracture of olecranon process without intraarticular extension of right ulna, initial encounter for closed fracture (principal); S42.401A Unspecified fracture of lower end of right humerus, initial encounter for closed fracture; S52.121A Displaced fracture of head of right radius, initial encounter for closed fracture; W19.XXXA Unspecified fall, initial encounter; Y93.9 Activity, unspecified; Y92.9 Unspecified place or not applicable; E11.40 Type 2 diabetes mellitus with diabetic neuropathy, unspecified; Z86.73 Personal history of transient ischemic attack (TIA), and cerebral infarction without residual deficits; J45.909 Unspecified asthma, uncomplicated; E07.9 Disorder of thyroid, unspecified; E06.3 Autoimmune thyroiditis; Z72.0 Tobacco use; Z79.4 Long term (current) use of insulin

== ENCOUNTER 2019-08-02 09:32 | Day surgery (SDC) | payer MEDICARE ==
[~2019-08-02] VITALS: Ht 162.6 cm; Wt 89.5 kg
--- NOTE | ~2019-08-02 | OP ---
PATIENT NAME: MARQUES GARCIA MEDICAL RECORD: [id number] :62 [facility] AD[facility]ION DATE: SURGEON: ALEC PRICE MD DATE OF OPERATION: 08/02/2019 PREOPERATIVE DIAGNOSIS: Fracture dislocation of the right elbow. POSTOPERATIVE DIAGNOSIS: Fracture dislocation of the right elbow. PROCEDURE: 1. Open reduction internal fixation of the right olecranon. 2. Right radial head replacement. SURGEON: Alec Price MD TESTER REGULATOR: LILY Kent ANESTHESIA: General. INTRAOPERATIVE COMPLICATIONS: None. SUMMARY OF PATHOLOGIC FINDINGS: The patient had an olecranon fracture with substantial loss of intraarticular cartilage. The patient also had a radial head fracture with displacement into the anterior superior aspect of the capitellum. Surgery required was both fixation of the olecranon fracture as well as the radial head. Radial head was replaced using the Tornier radial head replacement system. OPERATIVE SUMMARY IN DETAIL: After obtaining the appropriate preoperative orthopedic surgery consent as well as anesthetic consultation, evaluation, and clearance, the patient was brought to the operating room and placed on the operating table in a supine position. After adequate general laryngeal mask airway was administered, tourniquet was placed about the proximal aspect of the right upper extremity. Right upper extremity was then prepped and draped in routine sterile fashion. The arm was elevated, exsanguinated and tourniquet was inflated to 350 mmHg. Intraoperative timeout was taken and agreed upon by all given the patient's unique identifiers. Incision was first made over the olecranon. The olecranon fracture was identified, taken down, and all interposed soft tissue and fracture hematoma was removed. This was then reduced and held in place with a 6.5 x 105 mm screw from [employer]. Unfortunately, the patient had a substantial amount of comminution at the articular surface that was seen later in the surgery. Having completed the fixation of the olecranon, incision was made in a separate place for the radial head along the lateral aspect of the elbow taken down to the anconeus. Subanconeus dissection showed the patient to have the radial head completely fractured and removed at the radial neck. The radial head was removed in its entirety. Fragments were removed from the elbow. The olecranon was found to have costochondral fragmentation. The fragmentation was removed. The reduction seemed to be appropriate. Serial and sequential reaming and broaching were done of the radius for replacement of the radial head. The patient required a +4 x 7.5 post. This was put into place, reduced. Radiographs taken and sent for final radiologist review. Having completed this, the wounds were irrigated and closed by LILY Kent. Sterile dressings were applied. Tourniquet was deflated. Posterior splint was applied. The patient was awakened and taken to the recovery room in stable condition. All final needle and sponge counts were OPERATIVE REPORT [id number] MARQUES GARCIA ROSE correct. TRANSINT:[id number] Voice Confirmation ID: [id number] DOCUMENT ID: [id number] DEE LAINEZ, ALEC CORREA CC: [id number] DICTATION DATE: 08/04/19817 PLATE FINISHER: 08/04/19 1237 [facility] 08/02/[address] [id number]
[2019-08-02 09:59] LABS: HEMOGLOBIN 13.9 g/dL (12-16); MCH 30.1 pg (26.0-34.0); MCHC 33.1 g/dL (31.0-37.0); MCV 90.9 fL (80.0-100.0); MEAN PLATELET VOLUME 9.4 fL (7.4-10.4); RBC 4.62 10x6/uL (4.00-5.40); RDW 12.9 % (11.5-14.5); WBC 6.4 10x3/uL (4.8-10.8)
[2019-08-02 10:02] LABS: ANION GAP 10.6 mmol/L (8-16); CALCIUM 8.9 mg/dL (8.5-10.1); CARBON DIOXIDE 28.6 mmol/L (21.0-32.0); CREATININE - SERUM 0.9 mg/dL (0.6-1.3); POTASSIUM - SERUM 4.2 mmol/L (3.5-5.1)
[2019-08-02 10:06] LABS: APTT 29.6 SECONDS (22.8-39.4); INR 0.93 (0.85-1.17); PROTIME 12.4 SECONDS (11.6-15.0)
[2019-08-02 10:34] VITALS: BP 139/77; Ht 162.6 cm; Wt 89.5 kg
[2019-08-02] MEDS ORDERED: HYDROCODONE-IB1 EAC3 PO (10:36)
--- NOTE | 2019-08-02 17:31 | NUR ---
1530-FINGER FOOD TRAY TO ROOM. CL IN EASY REACH. VSS. DRESSING TO LEFT SIDE CDI.
--- NOTE | 2019-08-02 17:31 | NUR ---
1630-NO CHANGES. VSS. DENIES PAIN. DRESSING TO LEFT SIDE CDI. CL IN EASY REACH.
--- NOTE | 2019-08-02 17:32 | NUR ---
1730-REMOVED IV WITH CATH INTACT, DISPOSED INTO SHARPS,COVERED WITH GUAZE,SECURED WITH MEDIPORE TAPE. AMBULATED TO RESTROOM WITH STEADY GAIT AND VOIDED WITHOUT COMPLICATIONS.
--- NOTE | 2019-08-02 17:58 | NUR ---
1645-REMOVED IV WITH CATH INTACT,DISPOSED INTO SHARPS,COVERED WITH COTTON BALL,SECURED WITH MEDIPORE TAPE. REVIEWED POST OPERATIVE INSTRUCTIONS AND FOLLOW UP APPOINTMENT. VERBALIZED UNDERSTANDING.
--- NOTE | 2019-08-02 18:00 | NUR ---
1700-ESCORTED OUT VIA W/C WITH SPOUSE AWAITING TO DRIVE HOME.
[2019-08-03] MEDS ORDERED: HYDROCODONE-IB1 EAC3 PO (11:50)
== END 2019-08-02 17:00 | disposition home or self-care (01) ==
LOC: D.OPS 09:32 → D.PAN 11:45 → D.OPS 11:45
PROVIDERS: Anesthesiology; ATTEND Orthopaedic Surgery
DX: S52.021A Displaced fracture of olecranon process without intraarticular extension of right ulna, initial encounter for closed fracture (principal); S52.121A Displaced fracture of head of right radius, initial encounter for closed fracture; X58.XXXA Exposure to other specified factors, initial encounter; E11.40 Type 2 diabetes mellitus with diabetic neuropathy, unspecified; Z79.84 Long term (current) use of oral hypoglycemic drugs; J45.909 Unspecified asthma, uncomplicated